=== PATIENT | male | born 1950 | race Caucasian/White ===

== ENCOUNTER 2020-06-30 09:24 | Emergency (ER) | payer MEDICARE, SELFPAY ==
[2020-06-30 09:29] VITALS: BP 180/83; PULSE 84; RESP 18; TEMP 36.8; O2SAT 96
--- NOTE | 2020-06-30 09:37 | W.ED.GENAD ---
Discharge Plan Disposition Patient Disposition: HOME Condition: Stable Discharge Details Clinical Impression: Abdominal cramping Primary Care Provider: None,None ED Provider: Selma Cam Home Meds and New Rx's Prescriptions: No Action No Known Home Meds RF: 0 Discharge Instructions Instructions: Abdominal Pain (ED) Additional Instructions: As discussed, your urine does not show any evidence of infection. However, I am concerned for potential other etiology as the cause of your abdominal cramping. You are decided to leave prior to further evaluation. However, you may return at anytime should you develop new, worsening, persistent symptoms. Please follow-up with your primary care at the beginning of next week. When you follow-up with your primary care, please discuss your elevated blood pressure that was noted today. Discharge Data Discharge Date/Time-TO BE ENTERED AT DEPARTURE: 06/30/20 10:01 Medical Decision Making Patient is a pleasant 70-year-old gentleman presents today with chief complaint of increased frequency and urgency of urination. Is also endorsing some cramping of his bladder. States that symptoms again 2 days ago and is progressively been worsening. He denies any fevers or chills. States he has had some mild nausea but no vomiting. No change in his appetite. States he has not had symptoms like this historically. Denies any hematuria. No penile discharge. Denies any dysuria. No change in bowel habits. States that he has his prostate checked recently and it was without abnormality. Denies any penile lesions. On exam, patient appears nontoxic. His abdominal exam is benign aside for some mild discomfort of the bladder but no peritoneal findings were noted. He has no CVA tenderness. Patient declined genital rectal exam. Urinalysis without significant abnormality. Patient's postvoid residual was 40 cc. I discussed these findings with the patient. I did advise that as he is having some discomfort and change in urinary habits we should evaluate this further he is declining at this time. He feels that likely it is benign we will subside. I did discuss potential other etiologies including but not limited to diverticulitis, appendicitis, prostatitis, cystitis. I did discuss the potential complications of these. Patient is continued denying any further work-up at this time and would prefer discharge home. He is cognitively appropriate and seems able to make these decisions. He was noted to be hypertensive at 180/83. He denies any history of hypertension. States he does have a primary care in [place] and he is able to follow-up with them next week if symptoms persist. However, he was given very strict return precautions and is able to return if he would like to have continued evaluation or he has any new or worsening symptoms. All questions and concerns were addressed. HPI General Mode of arrival: ambulatory. Date/Time Provider Initiated Documentation: 06/30/20 09:36. Limitations to Documentation: no limitations. Information obtained by: patient and RN notes reviewed. History of Present Illness 70 year old M presents to the emergency department with the chief complaint of bladder cramping, described as moderate, with intensity rated at 6. Quality is described as other (cramping), and is localized to the abdomen. Patient reports no radiation. Patient started experiencing this day(s) (2) and it has been intermittent. other things that improve symptom(s), (urinating) Other factors that worsen symptoms (need to urinate) . Patient notes nausea/vomiting (nausea, no vomiting); denies chest pain, cough, diaphoresis, fever/chills, loss of appetite, rash and shortness of breath. Patient did receive the following treatments prior to arrival, none Related Data Home Medications Medication Instructions Recorded Confirmed Unknown [No Known Home Meds] 06/30/20 06/30/20 Allergies Allergy/AdvReac Type Severity Reaction Status Date / Time No Known Allergies Allergy Unverified 06/30/20 09:32 General Stated Complaint: Urinary CRISTIANA: 3 Review of Systems Constitutional Constitutional: Reports as per HPI, Denies chills, Denies fever(s) and Denies poor appetite Cardiovascular Cardiovascular: Denies chest pain Respiratory Respiratory: Denies cough Gastrointestinal Gastrointestinal: Reports abdominal pain (low, over bladder, describes cramping), Denies change in bowel habits, Reports nausea and Denies vomiting Genitourinary Genitourinary: Reports as per HPI, Denies hematuria, Denies oliguria, Denies difficulty urinating, Denies genital lesions, Denies genital pain, Denies dysuria, Denies flank pain, Denies penile discharge, Denies scrotal swelling, Denies testicular pain, Reports urinary frequency, Denies urinary incontinence and Reports urinary urgency Musculoskeletal Musculoskeletal: Reports as per HPI and Denies back pain Integumentary/Breasts Skin/Breast: Reports as per HPI and Denies rash [facility] Social History Smoking/Tobacco Use Status: Never Alcohol Intake: current Alcohol Intake frequency: holidays/special occasions only Do you feel safe at home: Yes Do you feel safe in your relationship?: Yes Exam Const General: cooperative, healthy appearing, comfortable, no acute distress, well developed and well groomed Nutritional Appearance: average body habitus and well nourished Orientation: alert and awake Resp Effort & Inspection: normal respiratory effort and no respiratory distress Auscultation: clear to auscultation bilaterally, no rales, no rhonchi and no wheezes Cardio Rate: regular rate Rhythm: regular rhythm Heart Sounds: S1 normal and S2 normal GI Inspection: normal to inspection Palpation: soft, no hepatosplenomegaly, not firm, no guarding, not rigid and tender (over bladder, no peritoneal findings) Back/Spine/Pelvis Back: no CVA tenderness Skin General skin exam: no rashes or lesions noted Trauma: no lacerations or abrasions Neuro General: patient alert and patient awake Cognition: normal cognition Speech: speech normal Gait: normal gait Psych Appearance: grossly normal and well kempt Mental Status: mental status grossly normal Speech and Movement: speech and movement normal Course Vital Signs Vital signs: Vital Signs Temperature 36.8 C 06/30/20 09:29 Pulse 84 06/30/20 09:29 Respiratory Rate 18 06/30/20 09:29 Blood Pressure 180/83 H 06/30/20 09:29 Pulse Oximetry 96 06/30/20 09:29 Temperature 36.8 C 06/30/20 09:29 Temperature Source Oral 06/30/20 09:29 Pulse 84 06/30/20 09:29 Respiratory Rate 18 06/30/20 09:29 Blood Pressure 180/83 H 06/30/20 09:29 Blood Pressure Position Sitting 06/30/20 09:29 Pulse Oximetry 96 06/30/20 09:29 Oxygen Delivery Method Room Air 06/30/20 09:29 Oxygen Flow Rate 0 06/30/20 09:29 Pain Level 6 06/30/20 09:29
[2020-06-30 09:39] LABS: Bilirubin Negative (Negative); Blood Negative (Negative); Clarity Clear (Clear); Glucose Negative (Negative); Ketones Negative (Negative); Leukocyte Esterase Negative (Negative); Nitrite Negative (Negative); Specific Gravity 1.025 (1.005-1.025); Urobilinogen 0.2 EU/dL (Up TO 0.2)
--- NOTE | 2020-06-30 09:56 | NUR.NOTE ---
patient's UA came back negative for uti. refusing any further exploration of what is causing his sx.
== END 2020-06-30 10:01 | disposition home or self-care (01) ==
PROVIDERS: Emergency Provider Physician Assistant
DX: R10.30 Lower abdominal pain, unspecified (principal); R35.0 Frequency of micturition; R03.0 Elevated blood-pressure reading, without diagnosis of hypertension; R11.0 Nausea
CPT/HCPCS: 99282; 81003; 99284

== ENCOUNTER 2024-05-10 10:46 | Inpatient (IN) | payer MEDICARE, SELFPAY ==
[2024-05-10] VITALS (54 sets, daily range): BP systolic 126–165; BP diastolic 62–96; PULSE 62–120; RESP 16–30; TEMP 37–37.2; O2SAT 93–98
--- NOTE | 2024-05-10 11:00 | DI.CT_ITS ---
Exam(s) CT ABDOMEN PELVIS W EXAM: CT ABDOMEN PELVIS W CLINICAL HISTORY: lower abd pain, h/o diverticulosis. TECHNIQUE: Imaging Protocol: Axial computed tomography images with coronal and sagittal reformatted images were created and reviewed CONTRAST MATERIAL: Intravenous: Omnipaque 350 Contrast volume:90 ml Oral/ no COMPARISON: No exams were available for comparison FINDINGS: ABDOMEN and PELVIS: Exam is limited by lack of intra-abdominal fat and oral contrast. Lung Bases: No acute findings. Liver: Normal density. No suspicious mass. Gallbladder and biliary tract: No radiodense calculus. No biliary dilation. Pancreas: Normal density. No abnormal calcifications or inflammatory process. No evidence of mass. Spleen: Normal. Kidneys: Right kidney mildly atrophic. Normal axis. No radiodense stones. No obstructive uropathy. No suspicious masses seen. Adrenal glands: No masses seen. Vasculature: Abdominal aorta non-dilated. Severe atherosclerotic changes. Soft tissues: Unremarkable. Bladder: Not well evaluated due to artifact from hip prostheses. Bowel: Limited evaluation without IV contrast and lack of intra-abdominal. Evaluation also somewhat limited due to artifact from hip prostheses. Abnormally dilated loops of small bowel with transition point in left lower quadrant. Sigmoid diverticulosis. Moderate quantity of stool. Peritoneal cavity: Small amount of fluid in the pelvis. No definite abscess or free air. Bones: Bilateral hip prostheses. Severe degenerative changes in the lower lumbar spine, L4-5 and L5- S1. Vacuum disc present at these levels. Reproductive organs: Prostate mildly enlarged. Lymph nodes: No pathologically enlarged lymph nodes. IMPRESSION:: Small-bowel obstruction with transition point in the left lower quadrant. Small amount of pelvic ascites. No free air or abscess. Findings called to Blaine Nix, ER provider. RADIATION DOSE DELIVERED: Total DLP DATA REPOSITORY: All CT scans at this facility are submitted to the National Radiology Data Registry (NRDR) Dose Index Registry (DIR) with the [employer] (ACR). RADIATION OPTIMIZATION: All CT scans at this facility use at least one of these dose optimization te chniques: automated exposure control; mA and/or kV adjustment per patient size (includes targeted exa ms where dose is matched to clinical indication); or iterative reconstruction.
--- NOTE | 2024-05-10 11:18 | ED.GENADUL_ITS ---
Discharge Plan Disposition Patient Disposition: Admit to [facility] Discharge Details Clinical Impression: Small bowel obstruction Primary Care Provider: None,None ED Provider: Germania Sampson Home Meds and New Rx's Prescriptions: No Action No Known Home Meds HPI General Date/Time Provider Initiated Documentation: 05/10/24 10:55 . 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 He reports symptoms started 3 days ago, though last 2 days he has been taking Cipro 500 mg twice daily. This has been accompanied by nausea/vomiting and constipation. He denies fever/chills, flank pain, dysuria, blood in stool, testicular/penile pain or swelling. He did have a bowel movement today after 3 days of constipation. He does have a history of diverticulosis noted on colonoscopy. He only takes lisinopril daily for hypertension, no history of other chronic diseases or abdominal surgeries. Physical exam remarkable for softly distended abdomen that is diffusely tender, worse in the lower abdomen. Normoactive bowel sounds. Easy work of breathing, lung sounds clear bilaterally. Normal heart sounds. DDx includes but is not limited to: UTI, diverticulitis, bowel obstruction, neoplasm I independently interpreted the following tests: CBC notable for mild leukocytosis, white cell count 11.47, mild hyponatremia/hypochloremia with sod ium 130 and chloride 93. Elevated creatinine to BUN ratio, 1.2: 24, consistent with mild dehydration. UA notable for trace protein, 40 ketones, trace blood, small bili. CT abdomen/pelvis performed, significant for small bowel obstruction. Discussed findings with patient, plan to admit to inpatient care unit for management. 1530: Discussed case with Dr. Ac, general surgery. Patient to be admitted to surgical service. NG tube ordered per surgery request. Patient to remain n.p.o., IV fluids at 125 an hour. Related Data Home Medications ?Medication ?Instructions ?Recorded ?Confirmed Unknown [No Known Home Meds] 06/30/20 06/30/20 Allergies Allergy/AdvReac Type Severity Reaction Status Date / Time No Known Allergies Allergy Unverified 06/30/20 09:32 General Stated Complaint: Urinary CRISTIANA: 4 Review of Systems Narrative: see HPI Exam Const General: cooperative, healthy appearing, comfortable and no acute distress Nutritional Appearance: thin HENMT Head: normal to inspection Face and sinus: dry mucous membranes Resp Effort & Inspection: normal respiratory effort and able to speak in complete sentences Auscultation: clear to auscultation bilaterally Cardio Rate: regular rate Rhythm: regular rhythm GI Inspection: distended (softly distended) Palpation: soft, no masses and tender (worst in lower abd) Auscultation: normal bowel sounds Course Vital Signs Vital signs: Vital Signs Temperature 37.1 C 05/10/24 10:56 Pulse 120 H 05/10/24 10:56 Respiratory Rate 16 05/10/24 10:56 Blood Pressure 165/96 H 05/10/24 10:56 Pulse Oximetry 96 05/10/24 10:56 Temperature 37.1 C 05/10/24 10:56 Temperature Source Tympanic 05/10/24 10:56 Pulse 120 H 05/10/24 10:56 Respiratory Rate 16 05/10/24 10:56 Blood Pressure 165/96 H 05/10/24 10:56 Blood Pressure Position Sitting 05/10/24 10:56 Pulse Oximetry 96 05/10/24 10:56 Oxygen Delivery Method Room Air 05/10/24 10:56 Oxygen Flow Rate 0 05/10/24 10:56 Pain Level 6 05/10/24 10:56 Medical Decision Making Imaging Data Radiologic Study: Radiologist's impression: Exam(s) CT ABDOMEN PELVIS W EXAM: CT ABDOMEN PELVIS W CLINICAL HISTORY: lower abd pain, h/o diverticulosis. TECHNIQUE: Imaging Protocol: Axial computed tomography images with coronal and sagittal reformatted images were created and reviewed CONTRAST MATERIAL: Intravenous: Omnipaque 350 Contrast volume:90 ml Oral/ no COMPARISON: No exams were available for comparison FINDINGS: ABDOMEN and PELVIS: Exam is limited by lack of intra-abdominal fat and oral contrast. Lung Bases: No acute findings. Liver: Normal density. No suspicious mass. Gallbladder and biliary tract: No radiodense calculus. No biliary dilation. Pancreas: Normal density. No abnormal calcifications or inflammatory process. No evidence of mass. Spleen: Normal. Kidneys: Right kidney mildly atrophic. Normal axis. No radiodense stones. No obstructive uropathy. No suspicious masses seen. Adrenal glands: No masses seen. Vasculature: Abdominal aorta non-dilated. Severe atherosclerotic changes. Soft tissues: Unremarkable. Bladder: Not well evaluated due to artifact from hip prostheses. Bowel: Limited evaluation without IV contrast and lack of intra-abdominal. Evaluation also somewhat limited due to artifact from hip prostheses. Abnormally dilated loops of small bowel with transition point in left lower quadrant. Sigmoid diverticulosis. Moderate quantity of stool. Peritoneal cavity: Small amount of fluid in the pelvis. No definite abscess or free air. Bones: Bilateral hip prostheses. Severe degenerative changes in the lower lumbar spine, L4-5 and L5-S1. Vacuum disc present at these levels. Reproductive organs: Prostate mildly enlarged. Lymph nodes: No pathologically enlarged lymph nodes. IMPRESSION:: Small-bowel obstruction with transition point in the left lower quadrant. Small amount of pelvic ascites. No free air or abscess. Findings called to Blaine Nix, ER provider. Quality:SDOH Health Related Social Needs: No Data to Display PFSH All Active Problems (Updated 05/10/24 @ 15:31 by Germania Nix) Small bowel obstruction (Acute) Social History Smoking/Tobacco Use Status: Never Smoking risk assessment performed?: Yes Alcohol Intake: current Alcohol Intake frequency: holidays/special occasions only Drug use: Never Substance use type: does not use Housing: house Do you feel safe at home: Yes Do you feel safe in your relationship?: Yes
[2024-05-10] MEDS: Normal Saline 1,000 ML 1000 ML IV (11:52)
[2024-05-10 11:53] LABS: Abs Immature Grans 0.03 10^3/uL (0.0-0.06); Absolute Eosinophil Count 0.01 10^3/uL (0.0-0.7); Absolute Lymphocyte Count 0.39 10^3/uL (1.2-3.4); Absolute Monocyte Count 0.95 10^3/uL (0.1-0.8); Absolute Neutrophil Count 10.05 10^3/uL (1.2-6.7); Basophils % 0.3 %; Eosinophils % 0.1 %; HCT 45.7 % (40.0-50.0); HGB 15.4 g/dL (13.5-17.5); Immature Grans % 0.3 %; Lymphocytes % 3.4 %; MCHC 33.7 % (32.0-36.0); MCV 95 fL (80-95); MPV 8.8 fL (8.0-11.0); Monocytes % 8.3 %; Neutrophils % 87.6 %; Platelet Count 272 10^3/uL (130-400); RBC 4.82 10^6/uL (4.36-5.78); RDW-SD 45.5 fL; WBC 11.47 10^3/uL (4.4-10.8)
[2024-05-10 11:54] LABS: Absolute Basophil Count 0.03 10^3/uL (0.0-0.2)
[2024-05-10 12:14] LABS: ALT 14 U/L (16-63); AST 12 U/L (15-37); Albumin 2.8 g/dL (3.4-5.0); Alkaline Phosphatase 64 U/L (46-116); Anion Gap 5.6 mmol/L (3-11); BUN 24 mg/dL (7-18); Bilirubin, Total 0.83 mg/dL (0.2-1.0); CO2 31.4 mmol/L (21.0-32.0); CREATININE 1.2 mg/dL (0.70-1.30); Calcium 9.3 mg/dL (8.5-10.1); Chloride 93 mmol/L (98-107); Estimated GFR 64.25 (mL/min/1.73m2); Glucose 131 mg/dL (74-106); Potassium 4.8 mmol/L (3.5-5.1); Sodium 130 mmol/L (136-145); Total Protein 7.1 g/dL (6.4-8.2)
[2024-05-10] MEDS: Ketorolac 15 MG/ML VIAL IVP (12:26)
[2024-05-10] MEDS: Omnipaque 350 MG/ML 100 ML BTL IJ (13:18)
[2024-05-10] MEDS: Normal Saline - Diluent 50 ML VIAL IJ (13:19)
[2024-05-10 14:52] LABS: Bilirubin Small (Negative); Blood Trace-intact (Negative); Clarity Clear (Clear); Glucose Negative (Negative); Ketones 40 mg/dL (Negative); Leukocyte Esterase Negative (Negative); Nitrite Negative (Negative); pH 5.5 (5-8)
[2024-05-10 14:56] LABS: Bacteria Negative HPF (Negative); C & S Indicated? No; Casts 3-5 Hyaline LPF (Negative); Crystals Negative HPF (Negative); Epithelial Cells Few HPF (Negative); Mucus Trace (Negative); RBC 0-2 HPF (0-2); WBC Negative HPF (0-5)
[2024-05-10] MEDS: Lactated Ringers 1,000 ML 125 ML IV (15:35)
--- NOTE | 2024-05-10 15:43 | HPE_ITS ---
Date of service: 05/10/24 Time of Service: 15:43 Assessment and Plan Assessment and plan (1) Small bowel obstruction: Status: Acute Assessment and plan: NG tube decompression Pain control Gastrografin challenge Encourage ambulation Once the small bowel obstruction has resolved, patient will need some type of further evaluation to delineate cause of weight loss and to ensure that there is no colonic obstructions from either diverticular stricture or colon cancer. (2) S/P bilateral hip replacements: (3) Diverticula of colon: Status: Acute Assessment and plan: Patient denies history of multiple episodes of diverticulitis (4) Atherosclerosis of aorta: Status: Acute (5) DJD (degenerative joint disease), lumbar: Status: Acute (6) HTN (hypertension): Status: Chronic Assessment and plan: lisinapril (7) Former smoker: Status: Acute (8) COPD (chronic obstructive pulmonary disease): Status: Chronic (9) BPH (benign prostatic hyperplasia): Status: Chronic (10) Weight loss, unintentional: Status: Acute History of Present Illness Narrative: Patient is a 74-year-old white male who was in his normal state of good health until Friday. He started having crampy abdominal pain that progressed throughout the weekend. Friday started having nausea vomiting and severe pain and came into the ER. Patient's never had a bowel obstruction in the past. He has never had anything like this before. He denies any trauma. He denies any travel. He denies any unusual foods. He denies any medication or supplements. He has never had any abdominal surgery before. He does have a pretty extensive history of diverticular disease. He had a colonoscopy and banding 10 to 15 years ago. At least had difficulty passing the scope. He has not had a colonoscopy since that time for fear of perforation. Patient does note that he has lost weight. He denies any changes in his bowel habits. He has not had any problems with constipation or diarrhea. He has not noticed any blood in his stools. He denies any heartburn or indigestion. He notes decreased appetite and will occasionally just have generalized abdominal pain and this is why he has not been eating. I did personally review CT scans and labs. He denies any chest pain with strenuous activities. He might get short of breath with strenuous activities. He is a former smoker. He has never been told he has emphysema. He denies heart attack/stroke/diabetes/COPD/asthma He does have a history of hypertension and takes lisinopril. Past surgery significant for bilateral hip replacement, colonoscopy, back surgery. He denies any problems with anesthesia. Review of Systems All systems reviewed & are unremarkable except as noted in HPI and below PFSH All Active Problems (Updated 05/10/24 @ 21:53 by Liza Ac DO) Weight loss, unintentional (Acute) BPH (benign prostatic hyperplasia) (Chronic) COPD (chronic obstructive pulmonary disease) (Chronic) Former smoker (Acute) HTN (hypertension) (Chronic) DJD (degenerative joint disease), lumbar (Acute) Atherosclerosis of aorta (Acute) Diverticula of colon (Acute) Small bowel obstruction (Acute) Surgical History (Updated 05/10/24 @ 15:44 by Liza Ac DO) S/P bilateral hip replacements Social History Smoking/Tobacco Use Status: Never Smoking risk assessment performed?: Yes Alcohol Intake: current Alcohol Intake frequency: holidays/special occasions only Drug use: Never Substance use type: does not use Housing: house Do you feel safe at home: Yes Do you feel safe in your relationship?: Yes Meds Allergies and Home Medications Allergies Allergy/AdvReac Type Severity Reaction Status Date / Time No Known Allergies Allergy Unverified 06/30/20 09:32 Home Medications ?Medication ?Instructions ?Recorded ?Confirmed ?Type Unknown [No Known Home Meds] 06/30/20 06/30/20 History Exam Const Other: PHYSICAL EXAM GENERAL APPEARANCE: Alert, healthy appearance, oriented, x 3,? in no acute distress HYDRATION: Well hydrated HEAD, EYES, EARS, NECK, THROAT: Head is normocephalic, pupils equal, round, reactive to light and accommodation, ocular movement intact, sclera clear and no jaundice. ?Dentition intact. LUNGS: normal respiration/normal chest excursion. Diffuse wheezing throughout all infante ?HEART: Regular rate and rhythm. no murmurs EXTREMITY: No edema or cyanosis.? no leg pain, redness, swelling.? Muscle wasting noted ABDOMEN: Distended and no bowel sounds. Tender but no peritonitis. no hernias. No surgical scars. Results Labs 05/10/24 11:45 05/11/24 05:51 Labs: Laboratory Results - last 24 hr 05/10/24 05/10/24 11:45 14:38 WBC 11.47 H RBC 4.82 Hgb 15.4 Hct 45.7 MCV 95 MCH 32.0 MCHC 33.7 RDW 13.0 Plt Count 272 MPV 8.8 Immature Gran % 0.3 Neutrophils % 87.6 Lymphocytes % 3.4 Monocytes % 8.3 Eosinophils % 0.1 Basophils % 0.3 Nucleated RBC % 0.0 Absolute Neutrophils 10.05 H Absolute Lymphocytes 0.39 L Absolute Monocytes 0.95 H Absolute Eosinophils 0.01 Absolute Basophils 0.03 Sodium 130 L Potassium 4.8 Chloride 93 L Carbon Dioxide 31.4 Anion Gap 5.6 BUN 24 H Creatinine 1.2 Est GFR (CKD-EPI 2020) 64.25 Glucose 131 H Calcium 9.3 Total Bilirubin 0.83 AST 12 L ALT 14 L Alkaline Phosphatase 64 Total Protein 7.1 Albumin 2.8 L Urine Color Yellow Urine Clarity Clear Urine pH 5.5 Ur Specific [place] 1.020 Urine Protein 100 H Urine Ketones 40 H Urine Blood Trace-intact H Urine Nitrite Negative Urine Bilirubin Small H Urine Urobilinogen 1.0 H Ur Leukocyte Esterase Negative Urine RBC 0-2 Urine WBC Negative Ur Epithelial Cells Few Urine Crystals Negative Urine Bacteria Negative Urine Casts 3-5 Hyaline Urine Mucus Trace Ur Culture Indicated? No Urine Glucose Negative Last Vital Signs Temp 37.1 C 05/10/24 10:56 Pulse 120 H 05/10/24 10:56 Resp 16 05/10/24 10:56 BP 165/96 H 05/10/24 10:56 Pulse Ox 96 05/10/24 10:56 Time Spent Time spent with Patient: 55-74 minutes Time was spent: preparing to see the patient(eg.review tests), obtaining and/or reviewing separately otained hiistory, ordering medications,tests, procedures, referring, communicating with other health aged or disabled carer, indepentently interpreting results, counseling the patient, care coordination and other
--- NOTE | 2024-05-10 16:59 | W.PC.ACHO ---
Registration Status: Primary Language: Preferred Language: ED Information & Data Chief Complaint Urinary 05/10/24 12:21 Chief Complaint Urinary 05/10/24 11:21 Triage Note On Friday started with low 05/10/24 10:56 abd discomfort and dark colored urine; endorses pain and burning with urination that started on Friday. Has started self medicating with cipro twice daily since Friday (Last Updated 05/10/24 @ 15:44 by Liza Ac DO) S/P bilateral hip replacements Most Recent Vital Signs Temperature 37 C 05/10/24 16:18 Temperature Source Tympanic 05/10/24 16:18 Pulse 70 05/10/24 16:18 Respiratory Rate 18 05/10/24 16:18 Respiratory Effort Normal 05/10/24 12:21 Blood Pressure 134/72 05/10/24 16:18 Blood Pressure Position Sitting 05/10/24 16:18 Pulse Oximetry 98 05/10/24 16:18 Oxygen Delivery Method Room Air 05/10/24 16:18 Oxygen Flow Rate 0 05/10/24 16:18 Pain Level 6 05/10/24 16:18 Allergies No Known Allergies Allergy (Unverified 06/30/20 09:32) Precautions Isolation Standard precaution 05/10/24 12:21 Active Medications Generic Name Dose Route Start Last Admin Trade Name Ed PRN Reason Stop Dose Admin Ringer's Solution 1,000 mls @ 125 mls/hr 05/10/24 15:30 05/10/24 15:35 IV 125 mls/hr INFUSION FLORY Administration Iohexol 100 ml 05/10/24 13:30 05/10/24 13:18 Omnipaque 350 Mg/Ml 100 Ml Btl IJ 06/09/24 23:59 90 ml DIRECTED FLORY Administration Sodium Chloride 50 ml 05/10/24 13:30 05/10/24 13:19 Normal Saline - Diluent 50 Ml Vial IJ 50 ml .FOR DI USE FLORY Administration IV IV Catheter Type [Left Saline Lock Antecubital] IV Catheter Gauge [Left 18 Antecubital] Diagnostics 05/10/24 05/10/24 Range/Units 14:38 11:45 WBC 11.47 H (4.4-10.8) 10^3/uL RBC 4.82 (4.36-5.78) 10^6/uL Hgb 15.4 (13.5-17.5) g/dL Hct 45.7 (40.0-50.0) % MCV 95 (80-95) fL MCH 32.0 (27.0-33.0) pg MCHC 33.7 (32.0-36.0) % RDW 13.0 (11.8-14.1) % Plt Count 272 (130-400) 10^3/uL MPV 8.8 (8.0-11.0) fL Immature Gran % 0.3 % Neutrophils % 87.6 % Lymphocytes % 3.4 % Monocytes % 8.3 % Eosinophils % 0.1 % Basophils % 0.3 % Nucleated RBC % 0.0 (0.0-0.3) % Absolute Neutrophils 10.05 H (1.2-6.7) 10^3/uL Absolute Lymphocytes 0.39 L (1.2-3.4) 10^3/uL Absolute Monocytes 0.95 H (0.1-0.8) 10^3/uL Absolute Eosinophils 0.01 (0.0-0.7) 10^3/uL Absolute Basophils 0.03 (0.0-0.2) 10^3/uL Sodium 130 L (136-145) mmol/L Potassium 4.8 (3.5-5.1) mmol/L Chloride 93 L (98-107) mmol/L Carbon Dioxide 31.4 (21.0-32.0) mmol/L Anion Gap 5.6 (3-11) mmol/L BUN 24 H (7-18) mg/dL Creatinine 1.2 (0.70-1.30) mg/dL Est GFR (CKD-EPI 2020) 64.25 (mL/min/1.73m2) Glucose 131 H (74-106) mg/dL Calcium 9.3 (8.5-10.1) mg/dL Total Bilirubin 0.83 (0.2-1.0) mg/dL AST 12 L (15-37) U/L ALT 14 L (16-63) U/L Alkaline Phosphatase 64 (46-116) U/L Total Protein 7.1 (6.4-8.2) g/dL Albumin 2.8 L (3.4-5.0) g/dL Urine Color Yellow (Yellow) Urine Clarity Clear (Clear) Urine pH 5.5 (5-8) Ur Specific [place] 1.020 (1.005-1.025) Urine Protein 100 H (Neg-Trace) mg/dL Urine Ketones 40 H (Negative) mg/dL Urine Blood Trace-intact H (Negative) Urine Nitrite Negative (Negative) Urine Bilirubin Small H (Negative) Urine Urobilinogen 1.0 H (Up to 0.2) mg/dL Ur Leukocyte Esterase Negative (Negative) Urine RBC 0-2 (0-2) HPF Urine WBC Negative (0-5) HPF Ur Epithelial Cells Few (Negative) HPF Urine Crystals Negative (Negative) HPF Urine Bacteria Negative (Negative) HPF Urine Casts 3-5 Hyaline (Negative) LPF Urine Mucus Trace (Negative) Ur Culture Indicated? No Urine Glucose Negative (Negative) mg/dL Intake and Output - 24 Hour Total 05/10/24 10:46 thru 05/10/24 13:08 Intake Total 1000 Balance 1000 Weight 62.142 kg Intake: IV 1000 Falls Risk Assessment History of Falls No History 05/10/24 12:21 Contributing Factors No Factors 05/10/24 12:21 Ambulatory Aids Independent 05/10/24 12:21 Tubes/Lines None 05/10/24 12:21 Gait Evaluation No gait disturbance 05/10/24 12:21 Cognition No cognitive impairment 05/10/24 12:21 Fall Total Score 0 05/10/24 12:21 Level of Risk Standard/Low Risk 05/10/24 12:21 Problems (Last Reviewed 06/30/20 @ 11:23 by MEHRDAD Ruffin) DJD (degenerative joint disease), lumbar (Acute) Atherosclerosis of aorta (Acute) Diverticula of colon (Acute) Small bowel obstruction (Acute) v v v v v v v v v Sending and/or Receiving Nurses: Please use comment section below to note any information pertinent to the patient hand-off not included above. Information / Comments: A/O x4, c/o 7/10 ABD pain, multiple episodes of emesis, pain radiating to back, HR in 120s, otherwise VS WNL, LS clear on RA, had BM today 05/10 prior to admission, pt states it was normal Report received from: JAIR Dodd
[2024-05-10] MEDS: FAMOTIDINE 20 MG/50 ML BAG 200 MG IV (17:08)
[2024-05-10] MEDS: Normal Saline Flush 10 ML SYR IVP ×2 (18:12→20:11)
[2024-05-10] MEDS: MORPHine 2 MG/ML SYR IVP ×2 (18:12→20:28)
--- NOTE | 2024-05-10 19:14 | DI.RAD_ITS ---
Exam(s) XR PORTABLE CHEST AP POST LINE EXAM: XR PORTABLE CHEST AP POST LINE CLINICAL HISTORY: NGT placement confirmation TECHNIQUE: 2D digital imaging was performed. COMPARISON: No exams were available for comparison FINDINGS: A nasogastric tube has been placed. The tip of the tube is in the fundus of the stomach. The side hole is at the lower esophagus. The tube should be advanced. LUNGS: Clear. No pleural abnormality seen. HEART: Normal size. AORTA: Normal diameter. BONES: Unremarkable for age. Soft tissues: Dilated loops of small bowel noted in the upper abdomen. IMPRESSION: Dilated small bowel loops. Status post placement of nasogastric tube which should be advanced furthe r into the stomach. DATA REPOSITORY: RADIATION DOSE DELIVERED:
--- NOTE | 2024-05-10 19:23 | DI.VRAD_ITS ---
PROCEDURE INFORMATION: Exam: XR Chest Exam date and time: 05/10/2024 7:11 PM Age: 74 years old Clinical indication: Device placement; Ngt placement confirmation TECHNIQUE: Imaging protocol: Radiologic exam of the chest. Views: 1 view. COMPARISON: CT ABDOMEN PELVIS W 05/10/2024 1:10 PM FINDINGS: Limitations: Of note the superior aspect of the chest is submitted from this examination. Tubes, catheters and devices: An enteric tube is noted in place. The side hole is noted at the GE junction, therefore the tube may be advanced approximately 10 cm for proper positioning. A safety pin is noted at the superior left aspect of the image, likely external to the patient. Lungs: No consolidation. Pleural spaces: No pleural effusion. No pneumothorax. Heart/Mediastinum: No cardiomegaly. Bones/joints: Unremarkable. Gastrointestinal tract: Dilated loops of bowel partially visualized. IMPRESSION: 1. Enteric tube may be advanced approximately 10 cm for proper positioning. 2. No significant pulmonary parenchymal abnormality. Dictated and Authenticated by: Deepti Rivas MD. Ordering:LUIS De Jesus MD
[2024-05-10] MEDS: Heparin 5,000 UNITS/ML VIAL 5000 UNITS SC (20:10)
[2024-05-10] MEDS: Gastrografin 120 ML BTL PO (20:29)
[2024-05-11] VITALS (7 sets, daily range): BP systolic 150–151; BP diastolic 92–98; PULSE 79–93; RESP 18–159; TEMP 36.4–37.4; O2SAT 94–97
--- NOTE | 2024-05-11 | DI.RAD_ITS ---
Exam(s) XR ABDOMEN FLAT PLATE EXAM: 2D digital imaging was performed. CLINICAL HISTORY: 8 hrs following gastrografin. COMPARISON: CR XR ABDOMEN FLAT PLATE from 05/11/2024 TECHNIQUE: Supine views of the abdomen was performed. Three images were obtained. FINDINGS: BOWEL GAS PATTERN: There are again seen distended loops of small bowel consistent with the patient's small-bowel obstruction. The oral Gastrografin has shown little progression since the prior examinat ion at 1306 hours. The tip of the enteric tube is again seen in the stomach. FREE AIR: None. CALCIFICATIONS: No radiopaque calcifications. OSSEOUS STRUCTURES: The patient has bilateral total hip replacements. There is a mild left convex cu rvature of the lumbar spine. OTHER FINDINGS: There is contrast seen in the urinary bladder consistent with the patient's recent CT examination. IMPRESSION: No significant progression of the oral Gastrografin since the prior examination. DATA REPOSITORY: RADIATION DOSE DELIVERED:
[2024-05-11] MEDS: Lactated Ringers 1,000 ML 125 ML IV (01:43)
[2024-05-11] MEDS: Heparin 5,000 UNITS/ML VIAL 5000 UNITS SC ×2 (05:59→17:37)
[2024-05-11] MEDS: FAMOTIDINE 20 MG/50 ML BAG 196.078 MG IV (05:59)
[2024-05-11] MEDS: ACETAMINOPHEN 1,000 MG/100 ML BTL 400 MG IVPB (06:41)
[2024-05-11 06:52] LABS: Anion Gap 7.5 mmol/L (3-11); BUN 24 mg/dL (7-18); CO2 30.5 mmol/L (21.0-32.0); Chloride 97 mmol/L (98-107); Estimated GFR 79.97 (mL/min/1.73m2); Glucose 105 mg/dL (74-106); Magnesium 1.8 mg/dL (1.8-2.4); Potassium 4.7 mmol/L (3.5-5.1); Sodium 135 mmol/L (136-145)
--- NOTE | 2024-05-11 08:00 | DI.RAD_ITS ---
Exam(s) XR ABDOMEN FLAT UPRIGHT EXAM: 2D digital imaging was performed. CLINICAL HISTORY: SBO. COMPARISON: CT CT ABDOMEN PELVIS W from 05/10/2024 TECHNIQUE: Supine and uprightSupine and Lateral views of the abdomen were performed. FINDINGS: BOWEL GAS PATTERN: Distended loops small bowel with air-fluid levels are again noted. Not definitely changed from prior CT. No free air. Nasogastric tube has been advanced and projects in the stomach . Residual contrast in the urinary bladder. CALCIFICATIONS: No urinary tract calcifications. OSSEOUS STRUCTURES: Degenerative changes in the spine. Bilateral hip prostheses. Visualized portions of chest: Unremarkable. IMPRESSION: 1. Findings consistent with small-bowel obstruction. 2. Satisfactory positioning of nasogastric tube. 3. No free air. DATA REPOSITORY: RADIATION DOSE DELIVERED:
[2024-05-11] MEDS: Normal Saline Flush 10 ML SYR IVP ×3 (08:02→19:34)
[2024-05-11] MEDS: Tiotropium Bromide-Respimat 10 PUFF INH 2 PUFF IH (09:25)
--- NOTE | 2024-05-11 10:27 | PDOC.CMIN ---
Date of service: 05/11/24 Time of Service: 10:27 Care Management Initial Assmt Initial Assessment Reason for Hospitalization: SBO Functional Status/Living Situation Patient Presentation: Sitting up in bed, talking with RN. Town of Residence: [place] Resides with: Spouse (Wendy) Significant Other/Family: Local Employment Status: Retired Instrumental Activities of Daily Living (ADLs): Independent Medications Medication Management: No Issues/Barriers identified Advance Directives Advance Directives: Do you have an Advance Directive: Y 06/30/20 09:44 AD On File at [facility]: N 03/06/16 09:17 Date Asked 05/10/24 05/10/24 11:04 AD Date Reviewed COLST On File at [facility] COLST Date Scanned Code Status Resuscitation Status DNR/DNI Care Team Visit Care Team Role Provider Type None None Primary Care Provider MD NON-[facility] STAFF PHYSICIAN Germania Nix Emergency Provider NURSE PRACTITIONER Liza Ac DO Admit Provider OSTEOPATHIC DOCTOR Attending Provider Discharge Potential Discharge Needs: PCP F/U Appt (Offer attachment) Anticipated Barriers to Discharge: None Identified Patient/Family Education Needs: Review discharge instructions, discuss Ask Me Three Transportation: Private vehicle Plan: Per MD: Ha continues to be closely monitored, NG tube placed, pain being monitored and managed and Ha is being encouraged to ambulate. Per MD, anticipate further work-up once SBO is resolved to determine cause of weight loss. Anticipate Ha will return home with no additional services, PCP F/U to be offered, he will transport home via private vehicle. PFSH All Active Problems (Updated 05/10/24 @ 21:53 by Liza Ac DO) Weight loss, unintentional (Acute) BPH (benign prostatic hyperplasia) (Chronic) COPD (chronic obstructive pulmonary disease) (Chronic) Former smoker (Acute) HTN (hypertension) (Chronic) DJD (degenerative joint disease), lumbar (Acute) Atherosclerosis of aorta (Acute) Diverticula of colon (Acute) Small bowel obstruction (Acute) Surgical History (Updated 05/10/24 @ 15:44 by Liza Ac DO) S/P bilateral hip replacements Social History Smoking/Tobacco Use Status: Never Smoking risk assessment performed?: Yes Alcohol Intake: current Alcohol Intake frequency: holidays/special occasions only Drug use: Never Substance use type: does not use Housing: house Do you feel safe at home: Yes Do you feel safe in your relationship?: Yes SDOH(Care Management) Screening Will the Patient Participate in the Screening?: Yes Do you worry about having a steady place to live?: no In the past 12 months, have you had to go without electric, gas, oil or water in your home?: no Have you or anyone in your house had to go without enough food to eat?: no Has lack of transportation kept you from medical appointments or from doing things needed for daily living?: no Has anyone in your support network made you feel unsafe for any reason?: no
[2024-05-11] MEDS: Gastrografin 120 ML BTL PO (10:47)
--- NOTE | 2024-05-11 12:01 | W.PM.PROGNOT ---
Date of Service Date of service: 05/11/24 Time of Service: 12:02 Assessment and Plan Assessment and plan (1) Small bowel obstruction: Status: Acute Assessment and plan: NG tube decompression Pain control Gastrografin challenge; Re-ordered due to not being noted on the abd xray today. Will clamp NG tube for 90 mins to ensure it is not being suctioned out. Will repeat abdominal xray Encouraged ambulation Pulmonary toilet was strongly encouraged and sitting in the chiar OOB. (2) S/P bilateral hip replacements: (3) Diverticula of colon: Status: Acute Assessment and plan: Patient denies history of multiple episodes of diverticulitis (4) Atherosclerosis of aorta: Status: Acute (5) DJD (degenerative joint disease), lumbar: Status: Acute (6) HTN (hypertension): Status: Chronic (7) Former smoker: Status: Acute (8) COPD (chronic obstructive pulmonary disease): Status: Chronic (9) BPH (benign prostatic hyperplasia): Status: Chronic (10) Weight loss, unintentional: Status: Acute Subjective Subjective Interval history since last seen: Patient is resting in bed. He states that he continues to feel some abdominal discomfort. Exam Const General: cooperative and ill appearing Orientation: alert and oriented x3 Resp Effort & Inspection: normal respiratory effort, no audible wheezes and cough GI Inspection: distended Palpation: soft, no guarding and tender Percussion: tympanic to percussion Objective Last Vital Signs Temp 37.4 C 05/11/24 07:34 Pulse 93 H 05/11/24 07:34 Resp 20 05/11/24 07:34 BP 151/92 H 05/11/24 07:34 Pulse Ox 97 05/11/24 07:34 Laboratory Results - last 24 hr 05/10/24 05/10/24 05/11/24 11:45 14:38 05:51 Sodium 130 L 135 L Potassium 4.8 4.7 Chloride 93 L 97 L Carbon Dioxide 31.4 30.5 Anion Gap 5.6 7.5 BUN 24 H 24 H Creatinine 1.2 1.0 Est GFR (CKD-EPI 2020) 64.25 79.97 Glucose 131 H 105 Calcium 9.3 9.0 Magnesium 1.8 Total Bilirubin 0.83 AST 12 L ALT 14 L Alkaline Phosphatase 64 Total Protein 7.1 Albumin 2.8 L Urine Color Yellow Urine Clarity Clear Urine pH 5.5 Ur Specific [place] 1.020 Urine Protein 100 H Urine Ketones 40 H Urine Blood Trace-intact H Urine Nitrite Negative Urine Bilirubin Small H Urine Urobilinogen 1.0 H Ur Leukocyte Esterase Negative Urine RBC 0-2 Urine WBC Negative Ur Epithelial Cells Few Urine Crystals Negative Urine Bacteria Negative Urine Casts 3-5 Hyaline Urine Mucus Trace Ur Culture Indicated? No Urine Glucose Negative Time Spent with Patient Time Spent with Patient: <25 minutes Time was spent: preparing to see the patient(eg.review tests), obtaining and/or reviewing separately otained hiistory and counseling the patient
[2024-05-11 12:51] LABS: Lab Add On Test DONE
[2024-05-11 13:15] LABS: NT-proBNP 850 pg/mL (<300)
--- NOTE | 2024-05-11 13:16 | DI.RAD_ITS ---
Exam(s) XR ABDOMEN FLAT PLATE EXAM: 2D digital imaging was performed. CLINICAL HISTORY: Gastrografin Challenge. COMPARISON: CR XR ABDOMEN FLAT UPRIGHT from 05/11/2024 TECHNIQUE: Supine views of the abdomen performed. FINDINGS: Gastrografin administered at 10:30 a.m.. Supine abdomen film performed 1 p.m.. BOWEL GAS PATTERN: Gastrografin is noted in the stomach and proximal jejunum. The bowel loops remain dilated, not changed from the prior exam. Nasogastric tube is unchanged in position in the stomach. OSSEOUS STRUCTURES: Degenerative changes in the spine. Bilateral hip prostheses. OTHER FINDINGS: Residual IV contrast present in the urinary bladder. IMPRESSION: Stable small bowel dilatation. The administered Gastrografin is seen in proximal jejunum and stomach . DATA REPOSITORY: RADIATION DOSE DELIVERED:
[2024-05-11] MEDS: MORPHine 2 MG/ML SYR IVP ×3 (13:54→19:34)
[2024-05-11] MEDS: Lactated Ringers 1,000 ML 75 ML IV (13:56)
[2024-05-11] MEDS: Metoprolol 5 MG/5 ML VIAL IVP ×2 (14:54→20:28)
[2024-05-11] MEDS: FAMOTIDINE 20 MG/50 ML BAG 196 MG IV (17:37)
[2024-05-12] VITALS (16 sets, daily range): BP systolic 129–166; BP diastolic 81–100; PULSE 75–100; RESP 16–20; TEMP 36.2–36.9; O2SAT 92–100; BMI 19.1
[2024-05-12] MEDS: Metoprolol 5 MG/5 ML VIAL IVP ×3 (02:34→21:02)
[2024-05-12] MEDS: MORPHine 2 MG/ML SYR IVP ×3 (02:47→11:20)
[2024-05-12] MEDS: Normal Saline Flush 10 ML SYR IVP ×4 (02:48→21:05)
[2024-05-12] MEDS: Lactated Ringers 1,000 ML 75 ML IV ×2 (05:18→17:27)
[2024-05-12] MEDS: FAMOTIDINE 20 MG/50 ML BAG 196 MG IV ×2 (05:18→21:38)
[2024-05-12] MEDS: Heparin 5,000 UNITS/ML VIAL 5000 UNITS SC ×2 (05:18→21:04)
[2024-05-12 07:17] LABS: HCT 41.2 % (40.0-50.0); MCH 32.3 pg (27.0-33.0); MCV 95 fL (80-95); MPV 9.2 fL (8.0-11.0); Platelet Count 306 10^3/uL (130-400); RBC 4.34 10^6/uL (4.36-5.78); RDW 13.2 % (11.8-14.1); RDW-SD 46.2 fL; WBC 10.44 10^3/uL (4.4-10.8)
[2024-05-12 07:23] LABS: BUN 26 mg/dL (7-18); Calcium 9.4 mg/dL (8.5-10.1); Chloride 101 mmol/L (98-107); Estimated GFR 79.97 (mL/min/1.73m2); Glucose 93 mg/dL (74-106); Potassium 4.1 mmol/L (3.5-5.1); Sodium 138 mmol/L (136-145)
--- NOTE | 2024-05-12 08:00 | DI.RAD_ITS ---
Exam(s) XR ABDOMEN FLAT PLATE EXAM: 2D digital imaging was performed. CLINICAL HISTORY: gastrographin challenge. COMPARISON: No exams were available for comparison TECHNIQUE: Supine views of the abdomen performed. FINDINGS: BOWEL GAS PATTERN: Is a gastric tube unchanged in position in fundus of stomach. No significant ellis ge in degree of small bowel dilatation. The oral contrast has progressed on to the on right lower qu adrant. The lung bases remain clear. IMPRESSION: Administered Gastrografin has progressed into the right lower quadrant. No significant change in bow el distension. DATA REPOSITORY: RADIATION DOSE DELIVERED:
[2024-05-12] MEDS: Tiotropium Bromide-Respimat 10 PUFF INH 2 PUFF IH (08:11)
--- NOTE | 2024-05-12 12:11 | ANES.PREOP_ITS ---
General Info Date of Service Date Performed: 05/12/24 Height: 5 ft 11 in Weight: 62.142 kg Body Mass Index (BMI): 19.1 Meds Allergies and Home Medications Allergies Allergy/AdvReac Type Severity Reaction Status Date / Time No Known Allergies Allergy Unverified 06/30/20 09:32 Home Medication ?Medication ?Instructions ?Recorded lisinopril 5 mg tablet 5 mg PO DAILY 05/11/24 Current Visit Medications: Current Medications Generic Name Dose Route Start Last Admin Trade Name Freq PRN Reason Stop Dose Admin Albuterol Sulfate 2.5 mg 05/10/24 21:55 Albuterol 2.5 Mg/3 Ml Inh Soln Vial UPD Q4H PRN PRN Benzocaine 60 ml 05/10/24 18:00 Benzocaine 20% 60 Ml Can TP DIRECTED FLORY Benzocaine/Menthol 1 each 05/10/24 20:09 Benzocaine/Menthol-Sf Lozg 16/Box SUC Q30MIN PRN sore throat Heparin Sodium (Porcine) 5,000 units 05/10/24 18:00 05/12/24 05:18 Heparin 5,000 Units/Ml Vial SC 5,000 units Q12H FLORY Administration Ringer's Solution 1,000 mls @ 75 mls/hr 05/10/24 15:30 05/12/24 05:18 IV 75 mls/hr INFUSION FLORY Administration Famotidine 20 mg in 50 mls @ 196.078 mls/hr 05/11/24 06:00 05/12/24 05:18 Pepcid Premixed Bag IV 196 mls/hr Q12H FLORY Administration Acetaminophen 1,000 mg in 100 mls @ 400 mls/hr 05/10/24 15:40 05/11/24 13:42 Ofirmev IVPB Infused Q8H PRN PRN Infusion IV Miscellaneous Supplies 1 each 05/10/24 15:45 Iv Access IV DIRECTED [facility] Metoprolol Tartrate 5 mg 05/11/24 14:00 05/12/24 08:00 Metoprolol 5 Mg/5 Ml Vial IVP 5 mg Q6H FLORY Administration Morphine Sulfate 2 mg 05/10/24 15:35 05/12/24 11:20 Morphine 2 Mg/Ml Syr IVP 2 mg Q1H PRN PRN Administration Ondansetron HCl 4 mg 05/10/24 15:35 Ondansetron 4 Mg/2 Ml Vial IVP Q4H PRN PRN Sodium Chloride 0 ml 05/10/24 15:35 05/12/24 02:48 Normal Saline Flush 10 Ml Syr IVP 10 ml PRN PRN Administration Sodium Chloride 0 ml 05/10/24 20:00 05/12/24 08:01 Normal Saline Flush 10 Ml Syr IVP 10 ml BID FLORY Administration Sodium Chloride 0 ml 05/10/24 15:35 Normal Saline 10 Ml Vial IJ DIRECTED PRN Tiotropium Harmon 2 puff 05/11/24 08:30 05/12/24 08:11 Tiotropium Harmon-Respimat 10 Puff Inh IH 2 puff DAILY FLORY Administration PFSH Active Problems Active Problems: Problem Status Onset Code Weight loss, unintentional Acute R63.4 BPH (benign prostatic hyperplasia) Chronic N40.0 COPD (chronic obstructive pulmonary disease) Chronic J44.9 Former smoker Acute Z87.891 HTN (hypertension) Chronic I10 DJD (degenerative joint disease), lumbar Acute M47.816 Atherosclerosis of aorta Acute I70.0 Diverticula of colon Acute K57.30 Small bowel obstruction Acute K56.609 Surgical History Surgical History (Updated 05/10/24 @ 15:44 by Liza Ac DO) S/P bilateral hip replacements Tobacco Smoking/Tobacco Use Status: Never Alcohol Alcohol Intake: current Alcohol intake frequency: holidays/special occasions only Substance Use Substance use: Never Substance use type: does not use Vital Signs and Lab Results Vital Signs Most Recent Vital Signs in EMR: Most Recent Vital Signs Temp Pulse Resp BP Pulse Ox 36.9 C 78 18 152/100 H 94 05/12/24 11:25 05/12/24 11:25 05/12/24 11:25 05/12/24 11:25 05/12/24 11:25 Lab Results 05/12/24 06:20 05/12/24 06:20 Blood Type / Crossmatch: 2 No Data to Display Complete Blood Count: 2 White Blood Count 10.44 10^3/uL (4.4-10.8) 05/12/24 06:20 Red Blood Count 4.34 10^6/uL (4.36-5.78) L 05/12/24 06:20 Hemoglobin 14.0 g/dL (13.5-17.5) 05/12/24 06:20 Hematocrit 41.2 % (40.0-50.0) 05/12/24 06:20 Platelet Count 306 10^3/uL (130-400) 05/12/24 06:20 Complete Metabolic Panel: 2 Sodium 138 mmol/L (136-145) 05/12/24 06:20 Potassium 4.1 mmol/L (3.5-5.1) 05/12/24 06:20 Chloride 101 mmol/L (98-107) 05/12/24 06:20 Carbon Dioxide 28.0 mmol/L (21.0-32.0) 05/12/24 06:20 BUN 26 mg/dL (7-18) H 05/12/24 06:20 Creatinine 1.0 mg/dL (0.70-1.30) 05/12/24 06:20 Est GFR (CKD-EPI 2020) 79.97 (mL/min/1.73m2) 05/12/24 06:20 Magnesium 2.0 mg/dL (1.8-2.4) 05/12/24 06:20 Calcium 9.4 mg/dL (8.5-10.1) 05/12/24 06:20 Albumin 2.8 g/dL (3.4-5.0) L 05/10/24 11:45 Glucose 93 mg/dL (74-106) 05/12/24 06:20 Liver Function Panel: 2 Alanine Aminotransferase (ALT/SGPT) 14 U/L (16-63) L 05/10/24 1 1:45 Aspartate Amino Transf (AST/SGOT) 12 U/L (15-37) L 05/10/24 11: 45 Coagulation Panel: 2 No Data to Display Cardiac Panel: 2 NT-Pro-B Natriuret Pep 850 pg/mL (<300) H 05/11/24 Arterial Blood Gas: 2 No Data to Display Venous Blood Gas: 2 No Data to Display Pancreas Panel: 2 No Data to Display Thyroid Panel: 2 No Data to Display Infectious Disease: 2 No Data to Display Blood Cultures: 2 No Data to Display Toxicology Panel: 2 No Data to Display Imaging and Studies Imaging and Studies Study information below may be from another EMR and interpreted by another provider. Please see original notes in EMR for more complete details. Echocardiogram Summary: 05/12/24: EF 50-55%, Mild to moderate MR. Anesthesia Assessment and Plan Anesthesia History Personal History: No History of Anesthesia Complications Family History: No Family History of Anesthesia Complications Exercise Tolerance Exercise Tolerance: Metabolic Equivalents>4 Pertinent Negatives Pertinent Negatives: No Major Cardiovascular Symptoms or Complaints Cardiac & Pulmonary Exam Cardiac Exam: Normal S1/S2 Heart Sounds Pulmonary Exam: Clear Bilateral Breath Sounds Implantable Cardiac Device Does patient have a Pacemaker or an ICD?: No Airway Exam Known Difficult Airway: No Mallampati Class: 1 Mouth Opening: Normal (> 3cm) Thyromental Distance: Greater than 3 cm Facial Hair: Full Lopez Neck Range of Motion: Full ROM Neck Circumference: Normal Teeth Condition: Normal Dentition ASA Classification ASA Score: ASA 2 Emergency Case?: No NPO Status NPO Status: NPO Clears >2 hours, Solids >8 hours Anesthesia Plan Resuscitation Status: Full Code Anesthesia Technique: General Anesthesia Airway Planned: Endotracheal Tube Pain Management: Epidural Monitors Used: Standard Monitors and SedLine Preoperative Comments:: OGT to wall suction, drained 200mL upon arrival to PACU.
--- NOTE | 2024-05-12 12:22 | W.PM.PROGNOT ---
Date of Service Date of service: 05/12/24 Time of Service: 12:22 Assessment and Plan Assessment and plan (1) Small bowel obstruction: Status: Acute Assessment and plan: I reviewed the findings of the Gastrografin challenge, and there is been minimal progress of any contrast into any significant amount of the small intestine, little in the colon. At this point, based on his exam, and the imaging, I do not think that this will resolve without an operative intervention. We talked for a little while about different possibilities in the operating room, which to possibly include the creation of an ileostomy or colostomy. If that is the case, I would hope that it would be temporary, but given the extent of his diverticular disease, it certainly possible that he might end up with a permanent stoma. I think he has a good understanding of the nature of surgery, as well as the recovery. He is able to provide consent, and we will make arrangements to proceed with exploratory laparotomy this afternoon. Subjective Subjective Interval history since last seen: Ha has a little more abdominal pain today, but no nausea or vomiting. He has passed a little bit of flatus, but overall does not feel like he is making much progress. Exam GI Other: Abdomen remains distended. He might be a little bit more tender today. Objective Last Vital Signs Temp 98.4 F 05/12/24 11:25 Pulse 78 05/12/24 11:25 Resp 18 05/12/24 11:25 BP 152/100 H 05/12/24 11:25 Pulse Ox 94 05/12/24 11:25 Laboratory Results - last 24 hr 05/11/24 05/12/24 05:51 06:20 WBC 10.44 RBC 4.34 L Hgb 14.0 Hct 41.2 MCV 95 MCH 32.3 MCHC 34.0 RDW 13.2 Plt Count 306 MPV 9.2 Sodium 138 Potassium 4.1 Chloride 101 Carbon Dioxide 28.0 Anion Gap 9.0 BUN 26 H Creatinine 1.0 Est GFR (CKD-EPI 2020) 79.97 Glucose 93 Calcium 9.4 Magnesium 2.0 NT-Pro-B Natriuret Pep 850 H Add-On Test Request DONE Time Spent with Patient Time Spent with Patient: 35-49 minutes Time was spent: preparing to see the patient(eg.review tests), referring, communicating with other health care information associate, indepentently interpreting results and counseling the patient
--- NOTE | 2024-05-12 14:38 | PDOC.CMPRO ---
Date of service: 05/12/24 Time of Service: 14:38 Care Management Progress Note Progress Note Text Progress Note Text: Ha continues to have increased abdominal pain. Surgeon Dr. Razo reviewed gastrogafin challenge and determined Ha would be brought to the OR today for exploratory laparotomy. Anticipate possible stoma placement related to small bowel obstruction, per MD. CM following. Discharge Potential Discharge Needs: Consult, Imaging/labs, PCP F/U Appt (T-Doc offering) and Surgical F/U Appt Anticipated Barriers to Discharge: Medical Status (Brought to OR today) Patient/Family Education Needs: Review discharge instructions, discuss Ask Me Three Transportation: Private vehicle Plan: Ha would be brought to the OR today for exploratory laparotomy. Anticipate possible stoma placement related to small bowel obstruction, per MD. He will be evaluated post surgically for discharge recommendations; surgeons will need to follow HH orders if indicated as Ha does not currently have a PCP. CM following. SDOH(Care Management) Screening Will the Patient Participate in the Screening?: Yes Do you worry about having a steady place to live?: no In the past 12 months, have you had to go without electric, gas, oil or water in your home?: no Have you or anyone in your house had to go without enough food to eat?: no Has lack of transportation kept you from medical appointments or from doing things needed for daily living?: no Has anyone in your support network made you feel unsafe for any reason?: no Anticipated HH Services Anticipated HH Services at Discharge [facility] Needed, RN Anticipated Date of Discharge: 05/17/24. Following Provider: Surgeon-no PCP attachment.
[2024-05-12] MEDS: ceFAZolin 2 GM/50 ML BAG IVPB (15:13)
--- NOTE | 2024-05-12 15:48 | ANES.NEUR_ITS ---
Epidural/Spinal Catheter Date Performed: 05/12/24 Procedure Start: 13:40 Procedure Stop: 13:56 Requesting Provider: Fernando Razo Procedure Location: PACU Reason Performed: Postoperative Analgesia Standard Monitors Applied: ECG, Blood Pressure and SpO2 Patient Position: Sitting Sedation Given (Indicate Dose Given): No Sedation given Patient Mental Status: Awake Sterility: Hand Hygiene, Surgical Cap, Surgical Mask, Sterile Gloves, Sterile Drape/Sheet and Chlorhexidine Procedure Location: L2-L3 Interspace Epidural Needle: Tuohy 18 Gauge Needle Length: 3.5 Inch Needle Approach: Midline Epidural Procedure: Skin Prepped, Sterile Drape Placed, 1% Lidocaine to skin and subcutaneous tissue with 25G needle (Repeat local to initial site), Tuohy Needle placed, SHANIQUE to Saline Used, Epidural Catheter Placed, Negative Heme, Negative CSF Flow and Tuohy Needle Removed Catheter Placed?: Catheter Placed Test Dose (Indicate Dose Given): 3ml 1.5% Lidocaine with 1:200K Epinephrine Given Loss of Resistance Depth (cm): 7 Catheter depth at skin (cm): 12 Dressing: Sorbaview Dressing Placed and Mastisol Used Epidural Provider Bolus (Indicate Dose Given): None Given Additives (I ndicate Dose Given ): None Infusion Medication: No Infusion Started (To be started in operating room) Block Level: N/A Paresthesia: None Ultrasound: Not Used Number of Attempts (See previous attempts in note section): 1 Procedure Tolerated: No Complications Procedure Outcome: Successful Performed By: Gauri Carranza
--- NOTE | 2024-05-12 15:49 | NUR.NOTE ---
Nursing Note: Pt to be transferred to ICU post-op, report given to JAIR Blackwood.
--- NOTE | 2024-05-12 16:26 | W.PC.ACHO ---
Registration Status: Primary Language: Preferred Language: ED Information & Data Chief Complaint Urinary 05/10/24 12:21 Chief Complaint Urinary 05/10/24 11:21 Triage Note On Friday started with low 05/10/24 10:56 abd discomfort and dark colored urine; endorses pain and burning with urination that started on Friday. Has started self medicating with cipro twice daily since Friday (Last Updated 05/10/24 @ 15:44 by Liza Ac DO) S/P bilateral hip replacements Most Recent Vital Signs Temperature 36.9 C 05/12/24 11:25 Temperature Source Temporal Artery Scan 05/12/24 11:25 Pulse 78 05/12/24 11:25 Pulse Rhythm Regular 05/11/24 23:15 Respiratory Rate 18 05/12/24 11:25 Respiratory Effort Normal, Non-Labored 05/11/24 23:15 Respiratory Depth Normal 05/11/24 23:15 Respiratory Pattern Normal 05/11/24 23:15 Blood Pressure 152/100 H 05/12/24 11:25 Blood Pressure Position Sitting 05/10/24 16:18 Pulse Oximetry 94 05/12/24 11:25 Oxygen Delivery Method Room Air 05/12/24 11:25 Oxygen Flow Rate 0 05/12/24 11:25 Pain Level 7 05/12/24 11:25 Comment Nurse notified of bp 05/12/24 11:25 Allergies No Known Allergies Allergy (Unverified 06/30/20 09:32) Precautions Isolation Standard precaution 05/10/24 12:21 Active Medications Generic Name Dose Route Start Last Admin Trade Name Freq PRN Reason Stop Dose Admin Heparin Sodium (Porcine) 5,000 units 05/10/24 18:00 05/12/24 05:18 Heparin 5,000 Units/Ml Vial SC 5,000 units Q12H FLORY Administration Ringer's Solution 1,000 mls @ 75 mls/hr 05/10/24 15:30 05/12/24 05:18 IV 75 mls/hr INFUSION FLORY Administration Famotidine 20 mg in 50 mls @ 196.078 mls/hr 05/11/24 06:00 05/12/24 05:18 Pepcid Premixed Bag IV 196 mls/hr Q12H FLORY Administration Acetaminophen 1,000 mg in 100 mls @ 400 mls/hr 05/10/24 15:40 05/11/24 13:42 Ofirmev IVPB Infused Q8H PRN PRN Infusion Metoprolol Tartrate 5 mg 05/11/24 14:00 05/12/24 08:00 Metoprolol 5 Mg/5 Ml Vial IVP 5 mg Q6H FLORY Administration Morphine Sulfate 2 mg 05/10/24 15:35 05/12/24 11:20 Morphine 2 Mg/Ml Syr IVP 2 mg Q1H PRN PRN Administration Sodium Chloride 0 ml 05/10/24 15:35 05/12/24 02:48 Normal Saline Flush 10 Ml Syr IVP 10 ml PRN PRN Administration Sodium Chloride 0 ml 05/10/24 20:00 05/12/24 08:01 Normal Saline Flush 10 Ml Syr IVP 10 ml BID FLORY Administration Tiotropium Bath 2 puff 05/11/24 08:30 05/12/24 08:11 Tiotropium Bath-Respimat 10 Puff Inh IH 2 puff DAILY FLORY Administration IV IV Catheter Type [Left Forearm Peripheral IV ] IV Catheter Type [Left Peripheral IV Antecubital] IV Catheter Gauge [Left 18 Forearm] IV Catheter Gauge [Left 18 Antecubital] Diagnostics 05/12/24 Range/Units 06:20 WBC 10.44 (4.4-10.8) 10^3/uL RBC 4.34 L (4.36-5.78) 10^6/uL Hgb 14.0 (13.5-17.5) g/dL Hct 41.2 (40.0-50.0) % MCV 95 (80-95) fL MCH 32.3 (27.0-33.0) pg MCHC 34.0 (32.0-36.0) % RDW 13.2 (11.8-14.1) % Plt Count 306 (130-400) 10^3/uL MPV 9.2 (8.0-11.0) fL Sodium 138 (136-145) mmol/L Potassium 4.1 (3.5-5.1) mmol/L Chloride 101 (98-107) mmol/L Carbon Dioxide 28.0 (21.0-32.0) mmol/L Anion Gap 9.0 (3-11) mmol/L BUN 26 H (7-18) mg/dL Creatinine 1.0 (0.70-1.30) mg/dL Est GFR (CKD-EPI 2020) 79.97 (mL/min/1.73m2) Glucose 93 (74-106) mg/dL Calcium 9.4 (8.5-10.1) mg/dL Magnesium 2.0 (1.8-2.4) mg/dL 05/12/24 15:22 Anaerobic Culture - Pending Abdomen 05/12/24 15:22 Surgical Culture - Pending Abdomen Gram Stain - Pending Intake and Output - 24 Hour Total 05/10/24 10:46 thru 05/12/24 15:43 Intake Total 4270.000 Output Total 2875 Balance 1395.000 Weight 62.142 kg Intake: IV 4270.000 Output: Gastric Drainage 2049 Left Nare 2049 Urine 825 Other: Urine Color Yellow Urine Appearance Clear Urine Odor None Comment Pt reports voiding in urinal. No urge to void at this time. Voiding Methods Urinal Urinary Catheter Urinary Catheter Date of 05/12/24 Insertion [Coude] Time of insertion [Coude] 15:05 Falls Risk Assessment History of Falls No History 05/10/24 19:21 Contributing Factors No Factors 05/10/24 12:21 Ambulatory Aids Independent 05/10/24 19:21 Tubes/Lines W/no contributing factors 05/10/24 19:21 Gait Evaluation No gait disturbance 05/10/24 19:21 Cognition No cognitive impairment 05/10/24 19:21 Fall Total Score 10 05/10/24 19:21 Level of Risk Standard/Low Risk 05/10/24 19:21 Problems (Last Reviewed 06/30/20 @ 11:23 by MEHRDAD Ruffin) Weight loss, unintentional (Acute) BPH (benign prostatic hyperplasia) (Chronic) COPD (chronic obstructive pulmonary disease) (Chronic) Former smoker (Acute) HTN (hypertension) (Chronic) DJD (degenerative joint disease), lumbar (Acute) Atherosclerosis of aorta (Acute) Diverticula of colon (Acute) Small bowel obstruction (Acute) Notes 05/12/24 15:49 Nursing Notes by Germania Jo Nursing Note: Pt to be transferred to ICU post-op, report given to JAIR Blackwood. Initialized on 05/12/24 15:49 - END OF NOTE v v v v v v v v v Sending and/or Receiving Nurses: Please use comment section below to note any information pertinent to the patient hand-off not included above. Information / Comments: Report received from: Blaine Jo RN
[2024-05-12] MEDS: Bupivacaine 0.25% Pres-Free 30 ML VIAL (17:34)
--- NOTE | 2024-05-12 18:38 | W.PM.OP ---
Date of service: 05/12/24 Time of Service: 18:38 Operative Note Operative Note DATE OF PROCEDURE: 05/12/24 PRE-OP DIAGNOSIS: Small bowel obstruction Acute small bowel obstruction secondary to incarcerated internal hernia as a complication of chronic diverticulitis PROCEDURE: Exploratory laparotomy, lysis of adhesions, primary repair of enterotomy, creation of loop sigmoid colostomy SURGEON: Fernando Razo HARVEST FIELD TICKETER: Lizette Peters HARVEST FIELD TICKETER: Titus Spears ANESTHESIA TYPE: Local By Surgeon, General:No Airway and Epidural Refer to Anesthesia Record ESTIMATED BLOOD LOSS: 150 PATHOLOGY: none sent COMPLICATIONS: Other (Enterotomy) Patient was transported to: ICU Patient's condition: stable Indications: Ha is a 74-year-old male who comes to the emergency department with abdominal pain, distention, nausea and vomiting, and imaging consistent with a bowel obstruction. He underwent a Gastrografin challenge, but had no improvement of his symptoms, nor any passage of contrast into the distal bowel. Findings: Complete small bowel obstruction in the terminal ileum caused by an internal hernia arising from adhesions secondary to sigmoid diverticulitis Procedure Description: I met with Ha in the preoperative holding area, we reviewed the plan for exploratory laparotomy, and secondary procedures to help relieve his bowel obstruction. He was able to provide informed consent. Anesthesia had already placed an epidural catheter, and shortly thereafter we moved to the operating room. Ha was assisted onto the OR table, and supported comfortably. General endotracheal anesthesia was then induced. Next, we moved him into the lithotomy position. Great care was taken to pad and support him appropriately. I then prepped and draped the anterior abdominal wall. I started with a generous midline laparotomy incision. I dissected down to the fascia and opened this along the length of the incision. There was immediate evisceration of massively dilated small bowel. There was some slightly purulent appearing ascites in the peritoneal cavity. Specimens of this were obtained for Gram stain and culture. I then turned my attention to the left lower quadrant as Ha has significant diverticulosis, and I suspect that that this was likely the source of the obstruction. There were some filmy adhesions that were easily lysed mostly along the medial side of the distal descending colon and complementary sigmoid colon. The small bowel was tethered down here, it was clearly the point of obstruction. With some gentle lysis of adhesions, I was able to mobilize a loop of distal ileum up out of the pelvis. Once this was free, it became clear that the pathology here was really more like an internal hernia caused by some dense adhesions of a chronically inflamed sigmoid colon in the upper pelvis. The thickened sigmoid mesocolon and bowel wall were densely adherent to the left lateral sidewall, and along the anterior margin to what I suspect is the backside of the bladder. These adhesions created a ringlike defect in the upper portion of the retrovesicular pouch through which the portion of the distal ileum had herniated. In an effort to better expose the area, and mobilized the small bowel to interrogate the area that had been stuck in this defect, I did take down several adhesions to some surrounding chronically inflamed sigmoid colon. This was done with a combination of sharp and blunt dissection. Because of the massive dilation upstream of the adhesion, and as a complication of the chronic inflammation and adhesions, I did create an enterotomy. It was recognized immediately, and well-controlled. In light of the enterotomy, sump suction was used to help decompress the bowel to make the remainder of the conduct of the operation safer and more efficient. Once the small bowel was decompressed, I used a MEENA stapler to create a [id number] antiperistaltic antimesenteric anastomosis. The common enterotomy was closed with another fire of the stapler, and imbricated with interrupted Vicryl sutures. The remainder of the adhesions along the final portion of the terminal ileum were mobilized. The portion of the terminal ileum that had been stuck in the hernia defect was viable. There was a little bit of edema, but the central lumen was well-preserved, and there were no obvious signs of ischemia or impending necrosis. This allowed free passage of succus through the previously obstructed segment into the cecum. Next, I ran the entirety of the small bowel. Although the wall was a little bit attenuated from the significant dilation prior to releasing the obstruction. No other areas appeared significantly compromised. With the obstruction relieved, I turned my attention back to the pathologic sigmoid colon. Although there were no clear signs of perforated sigmoid diverticulitis, I suspect that what seems to be quite significant chronic diverticular flares over the most likely source of all of the pathology. It was hard to appreciate the true lumen of the sigmoid colon here, and there was a significant amount of fecal impaction within the segment. With all of the edema here, it really worries that this would be problematic during his recovery. Unfortunately, because of the thick adhesions and chronic inflammation of the pelvis, I was not able to identify a suitable target for a distal resection that would allow for safe reconstruction and confucianist of continuity. Furthermore, in the absence of obvious perforated diverticulitis, and with small bowel obstruction as the most active pathology, I did not think it would be reasonable to proceed with an attempted sigmoid resection. Therefore, I felt creation of a diverting loop sigmoid colostomy above the pathologic segment would be in Ha's best interest at this point, and preserve any options moving forward. Prior to creation of the colostomy, I did turned my attention back to the tight ring in the retrovesicular pouch. I was worried that this would be a source of future herniation and obstructions. Therefore, I irrigated the area clean, and used a Prolene suture to help obliterate this defect, essentially dividing the deep pelvis from the upper pelvis and abdomen. Once this was done, I irrigated the surgical site once again. Everything was clean and hemostatic. I then turned my attention to creation of the loop colostomy. I identified a suitable target in the left lower quadrant through which to bring the stoma. I did mobilize the lateral attachments of the descending colon, as well as the splenic flexure in order to allow for mobilization of enough colon to bring up the loop without any tension on the colostomy. Next I excised a circular portion of skin on the anterior abdominal wall in the left lower quadrant and dissected down to the external fascia. This was incised in a cruciate fashion. In order to minimize incisional complications, I did stay lateral to the rectus sheath and brought this colostomy out through the oblique musculature. The muscles were divided, and the posterior fascia was incised as well. I then created a small defect through the mesentery, and used a Lavalette drain to deliver the loop up to the skin level. Great care was taken to ensure that the loop was not torsed. The Lavalette drain was affixed to the skin with interrupted Prolene sutures and used as a bridge. Again, I was careful to ensure that there was enough length, and no tension on the posterior aspect of the loop. I then turned my attention back to the midline incision. Again the peritoneum was irrigated clean. The fascia was closed with running 2-0 PDS suture. I irrigated the skin and subcutaneous tissues, then closed the skin with surgical stapler. The midline incision was covered, and I turned my attention to maturation of the colostomy. Antimesenteric portion of the loop was opened, and interrupted Vicryl sutures were used to affix the colon to the epidermis. A colostomy bag was applied, anterior abdominal wall was washed once again, and a midline laparotomy dressing was placed. Not long thereafter, the patient was extubated and transferred up to the surgical intensive care unit. I met with Ha' in the surgical waiting area to discuss the conduct of the operation, and anticipated recovery.
[2024-05-12] MEDS: Lactated Ringers 250 ML 500 ML IV (19:39)
[2024-05-12] MEDS: FentaNYL/ROPIvacaine 2 mcg/ml and 0.1% 200 ML CADD Cassette EP (19:48)
[2024-05-12] MEDS: PIPERACILLIN/TAZO 3.375 GM in Normal Saline 50 ML IVPB (20:59)
[2024-05-13] VITALS (38 sets, daily range): BP systolic 108–166; BP diastolic 69–91; PULSE 67–86; RESP 12–26; TEMP 36.4–36.9; O2SAT 88–96
[2024-05-13] MEDS: Normal Saline Flush 10 ML SYR IVP ×3 (02:48→19:32)
[2024-05-13] MEDS: PIPERACILLIN/TAZO 3.375 GM in Normal Saline 50 ML IVPB ×4 (02:49→20:16)
[2024-05-13] MEDS: Metoprolol 5 MG/5 ML VIAL IVP ×4 (02:49→20:10)
[2024-05-13] MEDS: FAMOTIDINE 20 MG/50 ML BAG 196 MG IV ×2 (06:10→19:51)
[2024-05-13] MEDS: Heparin 5,000 UNITS/ML VIAL 5000 UNITS SC ×2 (06:11→19:37)
[2024-05-13] MEDS: Lactated Ringers 1,000 ML 75 ML IV (06:23)
[2024-05-13 07:18] LABS: Abs Immature Grans 0.05 10^3/uL (0.0-0.06); Absolute Basophil Count 0.07 10^3/uL (0.0-0.2); Absolute Lymphocyte Count 0.46 10^3/uL (1.2-3.4); Absolute Monocyte Count 0.89 10^3/uL (0.1-0.8); Absolute Neutrophil Count 10.18 10^3/uL (1.2-6.7); Basophils % 0.6 %; Eosinophils % 0.3 %; HCT 42.9 % (40.0-50.0); HGB 14.3 g/dL (13.5-17.5); Immature Grans % 0.4 %; Lymphocytes % 3.9 %; MCH 32.1 pg (27.0-33.0); MCHC 33.3 % (32.0-36.0); MCV 96 fL (80-95); MPV 9.1 fL (8.0-11.0); Monocytes % 7.6 %; Neutrophils % 87.2 %; Platelet Count 314 10^3/uL (130-400); RBC 4.46 10^6/uL (4.36-5.78); RDW 13.3 % (11.8-14.1); RDW-SD 47.4 fL; WBC 11.68 10^3/uL (4.4-10.8)
[2024-05-13 07:33] LABS: Absolute Eosinophil Count 0.04 10^3/uL (0.0-0.7); Anion Gap 8.6 mmol/L (3-11); BUN 24 mg/dL (7-18); CO2 29.4 mmol/L (21.0-32.0); Calcium 8.6 mg/dL (8.5-10.1); Chloride 102 mmol/L (98-107); Estimated GFR 79.97 (mL/min/1.73m2); Glucose 144 mg/dL (74-106); Magnesium 1.9 mg/dL (1.8-2.4); Potassium 4.5 mmol/L (3.5-5.1); Sodium 140 mmol/L (136-145)
[2024-05-13] MEDS: Tiotropium Bromide-Respimat 10 PUFF INH 2 PUFF IH (07:44)
[2024-05-13] MEDS: FentaNYL/ROPIvacaine 2 mcg/ml and 0.1% 200 ML CADD Cassette EP ×2 (08:30→22:13)
--- NOTE | 2024-05-13 08:30 | PDOC.CMPRO ---
Date of service: 05/13/24 Time of Service: 08:30 Care Management Progress Note Progress Note Text Progress Note Text: Bowel resection with loop ostomy in the OR yesterday. Will need new H RN for Ostomy supplies and care, on discharge. Per MD, anticipate further work-up to determine cause of weight loss. No change to overall discharge plan. Discharge Plan: Anticipate, Ha will return home with [facility] RN services (Ostomy education and supplies), PCP F/U to be offered, he will transport home via private vehicle. CM is following. SDOH(Care Management) Screening Will the Patient Participate in the Screening?: Yes Do you worry about having a steady place to live?: no In the past 12 months, have you had to go without electric, gas, oil or water in your home?: no Have you or anyone in your house had to go without enough food to eat?: no Has lack of transportation kept you from medical appointments or from doing things needed for daily living?: no Has anyone in your support network made you feel unsafe for any reason?: no
--- NOTE | 2024-05-13 09:04 | PGE_ITS ---
Date of Service Date of service: 05/13/24 Time of Service: 09:04 Assessment and Plan Assessment and plan (1) Diverticular stricture: Status: Acute (2) Internal hernia: Status: Acute (3) HTN (hypertension): Status: Chronic (4) Atherosclerosis of aorta: Status: Acute (5) Weight loss, unintentional: Status: Acute (6) Status post exploratory laparotomy: Assessment and plan: Postop day #1 exploratory laparotomy for obstruction from diverticular stricture and internal hernia. Status post creation of diverting sigmoid loop ostomy. Ostomy is pink and healthy. Minimal output. NG tube shows minimal output No drains Urine output has been borderline we will continue to follow. The patient is complaining of pain when he coughs. We will adjust pain plan. He is able to move toes and has an epidural We discussed the importance of pulmonary toilet. GI prophylaxis: Pepcid DVT prophylaxis: Heparin Antibiotics: Zosyn Plan for today is to be up in chair. Would be great if he could do some walking. We will follow input and outputs and try to get his NG tube out today. Patient will need colostomy care and teaching. (7) Status post colostomy: (8) COPD (chronic obstructive pulmonary disease): Status: Chronic Assessment and plan: Spiriva and Acapella Subjective Subjective Interval history since last seen: Pt is doing well. no headaches. No CP or SOB. no dysuria. no leg pain or sw elling. Patient complaining of pain when he coughs. He has been coughing up some green material. He is not passing anything out through his colostomy. He has had minimal output through the NG tube. Urine output has been approximately 30 cc an hour. Exam Narrative Exam Narrative: PHYSICAL EXAM GENERAL APPEARANCE: Alert, healthy appearance, oriented, x 3,? in no acute distress HYDRATION: Well hydrated HEAD, EYES, EARS, NECK, THROAT: Head is normocephalic, pupils equal, round, r eactive to light and accommodation, ocular movement intact, sclera clear and no jaundice. ?Dentition intact. LUNGS: normal respiration/normal chest excursion. ?Clear to auscultation bilaterally. ?No wheeze. ?HEART: Regular rate and rhythm. no murmurs EXTREMITY: No edema or cyanosis.? no leg pain, redness, swelling.? ABDOMEN: Few bowel sounds. Wound is dressed. Colostomy is pink healthy. no significant output yet. NG tube has had about 50 cc out since surgery. Objective Last Vital Signs Temp 36.5 C 05/13/24 05:15 Pulse 71 05/13/24 05:27 Resp 15 05/13/24 05:27 BP 122/72 05/13/24 05:27 Pulse Ox 93 05/13/24 07:46 Laboratory Results - last 24 hr 05/13/24 06:00 WBC 11.68 H RBC 4.46 Hgb 14.3 Hct 42.9 MCV 96 H MCH 32.1 MCHC 33.3 RDW 13.3 Plt Count 314 MPV 9.1 Immature Gran % 0.4 Neutrophils % 87.2 Lymphocytes % 3.9 Monocytes % 7.6 Eosinophils % 0.3 Basophils % 0.6 Nucleated RBC % 0.0 Absolute Neutrophils 10.18 H Absolute Lymphocytes 0.46 L Absolute Monocytes 0.89 H Absolute Eosinophils 0.04 Absolute Basophils 0.07 Sodium 140 Potassium 4.5 Chloride 102 Carbon Dioxide 29.4 Anion Gap 8.6 BUN 24 H Creatinine 1.0 Est GFR (CKD-EPI 2020) 79.97 Glucose 144 H Calcium 8.6 Magnesium 1.9 Time Spent with Patient Time Spent with Patient: 35-49 minutes Time was spent: preparing to see the patient(eg.review tests), obtaining and/or reviewing separately otained hiistory, ordering medications,tests, procedures, referring, communicating with other health acute care clinical nurse specialist, indepentently interpreting results, counseling the patient, care coordination and other
[2024-05-13] MEDS: ACETAMINOPHEN 1,000 MG/100 ML BTL 400 MG IVPB ×2 (10:15→19:14)
--- NOTE | 2024-05-13 13:09 | PHA.REVIEW2 ---
Pharmacy Admission Review Admission Clinical Review Admission Pharmacy Review: Internal hernia (Acute) Diverticular stricture (Acute) Weight loss, unintentional (Acute) Former smoker (Acute) DJD (degenerative joint disease), lumbar (Acute) Atherosclerosis of aorta (Acute) Diverticula of colon (Acute) No Known Allergies Allergy (Unverified 06/30/20 09:32) Resuscitation Status DNR/DNI Height 5 ft 11 in Weight 60.1 kg Comments Comments/Follow Ups: No order for lisinopril - BP currently stable and patient is POD#1 Pharmacy Admission Review Renal Dosing Renal Dosing: BUN 24 mg/dL (7-18) H 05/13/24 06:00 Creatinine 1.0 mg/dL (0.70-1.30) 05/13/24 06:00 Medications needing adjustments: Reviewed (CrCl 56 mL/min, BUN decreased from 26) List of meds needing interventions: Current medications are okay Anticoagulation Anticoagulation: Hgb 14.3 g/dL (13.5-17.5) 05/13/24 06:00 Hct 42.9 % (40.0-50.0) 05/13/24 06:00 Plt Count 314 10^3/uL (130-400) 05/13/24 06:00 Creatinine 1.0 mg/dL (0.70-1.30) 05/13/24 06:00 DVT Prophylaxis: Reviewed Medications: Heparin (q12h) Opiate Usage Evaluate Pain Scale/Pains Meds: Reviewed (Epidural and PRN morphine) Scheduled Bowel Reg ordered if on Opiates?: No Relevant Labs Relevant Labs: Sodium 140 mmol/L (136-145) 05/13/24 06:00 Potassium 4.5 mmol/L (3.5-5.1) 05/13/24 06:00 Chloride 102 mmol/L (98-107) 05/13/24 06:00 Magnesium 1.9 mg/dL (1.8-2.4) 05/13/24 06:00 Electrolytes, C-Reactive P, ESR: Reviewed (glucose 144) Cardiac Review Cardiac Review: NT-Pro-B Natriuret Pep 850 pg/mL (<300) H 05/11/24 05:51 BP, HR, EF%: Reviewed (BP and HR WNL) QTc Review QTc: Reviewed (No EKG on file) IV to PO Switch IV Medications: Reviewed (acetaminophen, famotidine, metoprolol, morphine, ondansetron and Zosyn) Home Meds Home Med List reviewed: Reviewed Relevent Home Meds Not ordered & why?: lisinopril - patient is POD #1, will reach out once patient is able to tolerate PO intake Current Meds Current Medication Order Review: Reviewed Pharmacy Antibiotic Review Relevant Labs: WBC 11.68 10^3/uL (4.4-10.8) H 05/13/24 06:00 Temperature 36.5 C Temperature 36.6 C Microbiology 05/12/24 15:22 Surgical Culture - Preliminary Abdomen Gram Stain - Final Comments: Patient is on Zosyn, day 1 of 5, for diverticulitis. WBC slightly increased from 10.44, patient is postop day #1 exploratory laparotomy. Cultures pending from abdomen. Comments Comments/Follow Ups: No order for lisinopril - BP currently stable and patient is POD#1
--- NOTE | 2024-05-13 16:50 | W.PM.PROGNOT ---
Date of Service Date of service: 05/13/24 Time of Service: 08:15 Assessment and Plan Assessment and plan (1) HTN (hypertension): Status: Chronic (2) Atherosclerosis of aorta: Status: Acute (3) Weight loss, unintentional: Status: Acute (4) Diverticula of colon: Status: Acute (5) Diverticular stricture: Status: Acute (6) Internal hernia: Status: Acute (7) BPH (benign prostatic hyperplasia): Status: Chronic (8) DJD (degenerative joint disease), lumbar: Status: Acute (9) COPD (chronic obstructive pulmonary disease): Status: Chronic (10) Former smoker: Status: Acute (11) Status post colostomy: (12) Status post exploratory laparotomy: Assessment and plan: Postop day #1 exploratory laparotomy and diverting sigmoid loop for diverticular stricture and internal hernia in the sigmoid was unresectable at the time of surgery. DVT- heparin GI-Pepcid Antibiotics-Zosyn Acapella for pulmonary toilet. I did start him on Spiriva because of his history of COPD. Lungs are much more clear Will try to get him up walking and work on getting his NG tube out Urine output is borderline and increase his baseline fluids -Initiate colostomy training Pain plan is adjusted .urielyomi Subjective Subjective Interval history since last seen: Pt is doing OK no headaches. No CP or SOB. no productive cough. no dysuria. no leg pain or swelling. He has had minimal output from his NG tube. He is not passing any stool or flatus through the ostomy. We discussed findings at the time of surgery. Exam Narrative Exam Narrative: PHYSICAL EXAM GENERAL APPEARANCE: Alert, healthy appearance, oriented, x 3,? in no acute distress HYDRATION: Well hydrated HEAD, EYES, EARS, NECK, THROAT: Head is normocephalic, pupils equal, round, reactive to light and accommodation, ocular movement intact, sclera clear and no jaundice. ?Dentition intact. No sore throat.? No jaw pain. No thrush LUNGS: normal respiration/normal chest excursion. ?Clear to auscultation bilaterally. ?No wheeze. ?HEART: Regular rate and rhythm. no murmurs EXTREMITY: No edema or cyanosis.? no leg pain, redness, swelling.? ABDOMEN: dressings are clean dry and intact. He has minimal but he does have some bowel sounds. Colostomy is pink and patent. No output this a.m. Objective Last Vital Signs Temp 36.5 C 05/13/24 05:15 Pulse 77 05/13/24 14:19 Resp 15 05/13/24 05:27 BP 135/87 05/13/24 14:19 Pulse Ox 93 05/13/24 07:46 Laboratory Results - last 24 hr 05/13/24 06:00 WBC 11.68 H RBC 4.46 Hgb 14.3 Hct 42.9 MCV 96 H MCH 32.1 MCHC 33.3 RDW 13.3 Plt Count 314 MPV 9.1 Immature Gran % 0.4 Neutrophils % 87.2 Lymphocytes % 3.9 Monocytes % 7.6 Eosinophils % 0.3 Basophils % 0.6 Nucleated RBC % 0.0 Absolute Neutrophils 10.18 H Absolute Lymphocytes 0.46 L Absolute Monocytes 0.89 H Absolute Eosinophils 0.04 Absolute Basophils 0.07 Sodium 140 Potassium 4.5 Chloride 102 Carbon Dioxide 29.4 Anion Gap 8.6 BUN 24 H Creatinine 1.0 Est GFR (CKD-EPI 2020) 79.97 Glucose 144 H Calcium 8.6 Magnesium 1.9 Time Spent with Patient Time Spent with Patient: >50 minutes Time was spent: preparing to see the patient(eg.review tests), obtaining and/or reviewing separately otained hiistory, ordering medications,tests, procedures, referring, communicating with other health live in caregiver, indepentently interpreting results, counseling the patient, care coordination and other
--- NOTE | 2024-05-13 17:50 | W.ANESPOSTOP ---
Postoperative Evaluation Date, Time and Location Date Performed: 05/13/24 Time Performed: 17:50 Patient Location: Intensive Care Unit Vital Signs Most Recent Imported Vital Signs: Most Recent Vital Signs Temp Pulse Resp BP Pulse Ox 36.5 C 77 15 135/87 93 05/13/24 05:15 05/13/24 14:19 05/13/24 05:27 05/13/24 14:19 05/13/24 07:46 Pain Score Most Recent Pain Score: Most Recent Pain Score Pain Level 6 05/13/24 10:15 Assessment Mental Status: Awake (Alert & Oriented to Patient Baseline) Airway and Respiratory Function: Patent airway with normal (patient baseline) respiratory exam Cardiovascular Function: Hemodynamically Stable Hydration Status: Adequately Hydrated Nausea & Vomiting: No Nausea or Vomiting Pain: Pain is tolerable per patient Peripheral Nerve Block: Patient did not receive a nerve block Postoperative Comments:: Epidural infusing
--- NOTE | 2024-05-13 17:51 | W.ANESEPD ---
Epidural/Spinal Daily Note Date Performed: 05/13/24 Assessment Time: 17:51 Patient Location: Intensive Care Unit Catheter Type in Place: Epidural Catheter Dressing Assessment: Dressing intact with good adherence Catheter Assessment: Catheter Labeled and Intact and Functioning Previous Catheter Depth Noted (cm): 12 Current Catheter Depth (cm): 12 Current Medication Infusion: Ropivacaine 0.1% with Fentanyl 2mcg/ml Current Maintenance Infusion Rate (ml/hour): 10 Current PCEA Bolus Dose (ml): 5 Current Pain Score (0-10): 2 Medication Infusion Stopped, Catheter Removal Planned: No New Bolus Given or Change in Infusion Made: No Completed By: Hood Gracia
[2024-05-13] MEDS: Lactated Ringers 1,000 ML 50 ML IV (18:07)
[2024-05-14] VITALS (43 sets, daily range): BP systolic 108–162; BP diastolic 69–102; PULSE 62–95; RESP 10–26; TEMP 36.2–36.6; O2SAT 92–96
[2024-05-14] MEDS: ACETAMINOPHEN 1,000 MG/100 ML BTL 400 MG IVPB (03:25)
[2024-05-14] MEDS: PIPERACILLIN/TAZO 3.375 GM in Normal Saline 50 ML IVPB ×4 (03:48→20:24)
[2024-05-14] MEDS: Metoprolol 5 MG/5 ML VIAL IVP ×2 (04:05→10:38)
[2024-05-14] MEDS: FAMOTIDINE 20 MG/50 ML BAG 196 MG IV (06:39)
[2024-05-14 06:47] LABS: Abs Immature Grans 0.08 10^3/uL (0.0-0.06); Absolute Basophil Count 0.03 10^3/uL (0.0-0.2); Absolute Eosinophil Count 0.06 10^3/uL (0.0-0.7); Absolute Lymphocyte Count 0.83 10^3/uL (1.2-3.4); Absolute Monocyte Count 0.74 10^3/uL (0.1-0.8); Basophils % 0.3 %; Eosinophils % 0.5 %; HCT 37.1 % (40.0-50.0); HGB 12.4 g/dL (13.5-17.5); Immature Grans % 0.7 %; Lymphocytes % 7.5 %; MCH 31.9 pg (27.0-33.0); MCHC 33.4 % (32.0-36.0); MCV 95 fL (80-95); Monocytes % 6.7 %; Neutrophils % 84.3 %; Platelet Count 286 10^3/uL (130-400); RBC 3.89 10^6/uL (4.36-5.78); RDW 13.5 % (11.8-14.1); RDW-SD 47.7 fL; WBC 11.04 10^3/uL (4.4-10.8)
[2024-05-14 06:51] LABS: Absolute Neutrophil Count 9.31 10^3/uL (1.2-6.7)
[2024-05-14 07:19] LABS: Anion Gap 1.5 mmol/L (3-11); BUN 27 mg/dL (7-18); CO2 33.5 mmol/L (21.0-32.0); Calcium 8.4 mg/dL (8.5-10.1); Chloride 103 mmol/L (98-107); Estimated GFR 79.97 (mL/min/1.73m2); Glucose 106 mg/dL (74-106); Magnesium 1.9 mg/dL (1.8-2.4); Sodium 138 mmol/L (136-145)
--- NOTE | 2024-05-14 07:33 | PGE_ITS ---
Date of Service Date of service: 05/14/24 Time of Service: 07:33 Assessment and Plan Assessment and plan (1) Internal hernia: Status: Acute Assessment and plan: Advance his diet a bit this morning, and his vital signs and lab work is reassuring. Leave the Velarde in place until epidural is out since he did require coud? catheterization. Subjective Subjective Interval history since last seen: Ha has been feeling very good. Pain has been well-controlled. He denies an y nausea or vomiting. Is been able to tolerate some liquids without any discomfort. Exam GI Other: Abdomen is soft and minimally distended. Stoma is pink, and there is a little bit of serosanguineous discharge into the colostomy bag. Incision is clean. Objective Last Vital Signs Temp 97.5 F L 05/14/24 04:37 Pulse 63 05/14/24 04:37 Resp 16 05/14/24 04:37 BP 128/77 05/14/24 04:37 Pulse Ox 92 05/14/24 04:37 Laboratory Results - last 24 hr 05/13/24 05/14/24 06:00 05:56 WBC 11.68 H 11.04 H RBC 4.46 3.89 L Hgb 14.3 12.4 L Hct 42.9 37.1 L MCV 96 H 95 MCH 32.1 31.9 MCHC 33.3 33.4 RDW 13.3 13.5 Plt Count 314 286 MPV 9.1 9.0 Immature Gran % 0.4 0.7 Neutrophils % 87.2 84.3 Lymphocytes % 3.9 7.5 Monocytes % 7.6 6.7 Eosinophils % 0.3 0.5 Basophils % 0.6 0.3 Nucleated RBC % 0.0 0.0 Absolute Neutrophils 10.18 H 9.31 H Absolute Lymphocytes 0.46 L 0.83 L Absolute Monocytes 0.89 H 0.74 Absolute Eosinophils 0.04 0.06 Absolute Basophils 0.07 0.03 Sodium 140 138 Potassium 4.5 4.0 Chloride 102 103 Carbon Dioxide 29.4 33.5 H Anion Gap 8.6 1.5 L BUN 24 H 27 H Creatinine 1.0 1.0 Est GFR (CKD-EPI 2020) 79.97 79.97 Glucose 144 H 106 Calcium 8.6 8.4 L Magnesium 1.9 1.9 Time Spent with Patient Time Spent with Patient: 25-34 minutes Time was spent: preparing to see the patient(eg.review tests), indepentently interpreting results and counseling the patient
[2024-05-14] MEDS: Protein Nutritional Supplement 16 GM 1 OUNCE PACKET PO ×2 (08:00→14:33)
[2024-05-14] MEDS: Tiotropium Bromide-Respimat 10 PUFF INH 2 PUFF IH (08:12)
--- NOTE | 2024-05-14 08:39 | PDOC.CMPRO ---
Date of service: 05/14/24 Time of Service: 08:39 Care Management Progress Note Progress Note Text Progress Note Text: Ha is up and ambulating in the bui, with RN, plan for today is Ostomy teaching in the ICU. Pt will need [facility] RN for Ostomy support and supplies on discharge. He does not have a PCP, Surgical to follow [facility] orders. Home supplies will be ordered through [employer], Molly from Surgical is notified at Dr. Ac's request. Discharge Potential Discharge Needs: PCP F/U Appt Anticipated Barriers to Discharge: None Identified Patient/Family Education Needs: Review discharge instructions, discuss Ask Me Three Transportation: Private vehicle Plan: Anticipate, Ha will return home with [facility] RN services (followed by Surgical), No PCP; T-doc F/U to be offered, Ostomy supplies will be ordered through [employer], Pt will transport home via private vehicle. CM is following. SDOH(Care Management) Screening Will the Patient Participate in the Screening?: Yes Do you worry about having a steady place to live?: no In the past 12 months, have you had to go without electric, gas, oil or water in your home?: no Have you or anyone in your house had to go without enough food to eat?: no Has lack of transportation kept you from medical appointments or from doing things needed for daily living?: no Has anyone in your support network made you feel unsafe for any reason?: no
[2024-05-14] MEDS: Heparin 5,000 UNITS/ML VIAL 5000 UNITS SC ×2 (09:23→20:30)
[2024-05-14] MEDS: Normal Saline Flush 10 ML SYR IVP ×2 (09:32→20:29)
[2024-05-14] MEDS: FentaNYL/ROPIvacaine 2 mcg/ml and 0.1% 200 ML CADD Cassette EP (13:29)
--- NOTE | 2024-05-14 14:43 | W.ANESEPD ---
Epidural/Spinal Daily Note Date Performed: 05/14/24 Assessment Time: 14:44 Patient Location: Intensive Care Unit Catheter Type in Place: Epidural Catheter Dressing Assessment: Dressing intact with good adherence Catheter Assessment: Catheter Labeled and Intact and Functioning Previous Catheter Depth Noted (cm): 12 Current Catheter Depth (cm): 12 Current Medication Infusion: Ropivacaine 0.1% with Fentanyl 2mcg/ml Current Maintenance Infusion Rate (ml/hour): 10 Current PCEA Bolus Dose (ml): 5 Current Pain Score (0-10): 0 Medication Infusion Stopped, Catheter Removal Planned: No New Bolus Given or Change in Infusion Made: No Daily Management Comments: Pt. comfortable and has been out of bed which has been encouraged. Discussed plan to wait another day or so and then do a pain trial with epidural off. All questions answered. Completed By: Colton Ferrera
[2024-05-14] MEDS: Lactated Ringers 1,000 ML 50 ML IV (20:29)
[2024-05-15] VITALS (62 sets, daily range): BP systolic 156–171; BP diastolic 99–112; PULSE 80–98; RESP 12–23; TEMP 36.6–37.1; O2SAT 91–93
[2024-05-15] MEDS: FentaNYL/ROPIvacaine 2 mcg/ml and 0.1% 200 ML CADD Cassette EP ×2 (02:54→17:54)
[2024-05-15] MEDS: PIPERACILLIN/TAZO 3.375 GM in Normal Saline 50 ML IVPB ×4 (03:20→20:42)
[2024-05-15] MEDS: Normal Saline Flush 10 ML SYR IVP ×3 (03:30→21:03)
[2024-05-15] MEDS: Tiotropium Bromide-Respimat 10 PUFF INH 2 PUFF IH (08:20)
[2024-05-15] MEDS: Heparin 5,000 UNITS/ML VIAL 5000 UNITS SC ×2 (08:59→20:45)
--- NOTE | 2024-05-15 08:59 | PGE_ITS ---
Date of Service Date of service: 05/15/24 Time of Service: 09:00 Assessment and Plan Assessment and plan (1) Internal hernia: Status: Acute Assessment and plan: 74-year-old man postop day 3 from exploratory laparotomy with bowel resection. He is hemodynamically stable. He has an ileus which is not unexpected at this point. Overall plan: Await better bowel function and resolution of distention - n.p.o. with sips/ice only. DVT prophylaxis Analgesia as needed Subjective Subjective Interval history since last seen: Patient is feeling pretty well overall. His pain is under control. He denies having any appetite. He feels like his abdomen is very bloated. Exam Narrative Exam Narrative: General: Nontoxic, comfortable and interactive Neuro: Alert and oriented x 3 Psych: Good mood and affect, good insight and understanding into his condition Chest: Nonlabored breathing Heart: Regular Abdomen: Soft, very distended, moderate tenderness around incisions. Left lower quadrant colostomy is pink but not functioning. There is no air and there is no liquid in the bag. Objective Last Vital Signs Temp 98.8 F 05/15/24 02:51 Pulse 85 05/15/24 02:51 Resp 19 05/15/24 04:00 BP 156/99 H 05/15/24 02:51 Pulse Ox 93 05/15/24 08:23 Time Spent with Patient Time Spent with Patient: 25-34 minutes Time was spent: preparing to see the patient(eg.review tests), obtaining and/or reviewing separately otained hiistory, ordering medications,tests, procedures, referring, communicating with other health live in caregiver, indepentently interpreting results, counseling the patient, care coordination and other
[2024-05-15] MEDS: Protein Nutritional Supplement 16 GM 1 OUNCE PACKET PO ×2 (09:01→20:44)
[2024-05-15] MEDS: Lisinopril 5 MG TAB PO (09:02)
--- NOTE | 2024-05-15 10:45 | ANES.NEURP_ITS ---
Epidural/Spinal Daily Note Date Performed: 05/15/24 Assessment Time: 10:39 Patient Location: Intensive Care Unit Catheter Type in Place: Epidural Catheter Dressing Assessment: Dressing intact with good adherence Catheter Assessment: Catheter Labeled and Intact and Functioning Previous Catheter Depth Noted (cm): 12 Current Catheter Depth (cm): 12 (Not easily visualized with dressing. ) Current Medication Infusion: Ropivacaine 0.1% with Fentanyl 2mcg/ml Current Maintenance Infusion Rate (ml/hour): 10 Current PCEA Bolus Dose (ml): 5 Current Pain Score (0-10): 7 Medication Infusion Stopped, Catheter Removal Planned: No Sensory / Motor Block Comments: Fairly full CMS. Strong leg lifts. Patient reports he does feel like its working, just more as a background. Did not want removal today. Is currently requesting PRN Morphine. New Bolus Given or Change in Infusion Made: No Daily Management Comments: Plan on re-evaluating tomorrow. Of note: belly more distended, printed circuit boards contact printer General Surgeon rounded and did make patient NPO again. Completed By: Yonatan Lutz
[2024-05-15] MEDS: MORPHine 2 MG/ML SYR IVP ×4 (10:49→22:38)
[2024-05-15] MEDS: Lactated Ringers 1,000 ML 100 ML IV (16:35)
[2024-05-16] VITALS (16 sets, daily range): BP systolic 138–181; BP diastolic 90–120; PULSE 84–102; RESP 14–20; TEMP 36.1–37.1; O2SAT 91–95
[2024-05-16] MEDS: PIPERACILLIN/TAZO 3.375 GM in Normal Saline 50 ML IVPB ×3 (01:34→14:03)
[2024-05-16] MEDS: MORPHine 2 MG/ML SYR IVP ×7 (05:13→15:24)
[2024-05-16] MEDS: Lactated Ringers 1,000 ML 100 ML IV (05:48)
[2024-05-16] MEDS: Heparin 5,000 UNITS/ML VIAL 5000 UNITS SC (06:23)
[2024-05-16] MEDS: Normal Saline Flush 10 ML SYR IVP ×6 (07:49→15:27)
[2024-05-16] MEDS: Lisinopril 5 MG TAB PO (07:54)
--- NOTE | 2024-05-16 08:03 | PGE_ITS ---
Date of Service Date of service: 05/16/24 Time of Service: 09:00 Assessment and Plan Assessment and plan (1) Internal hernia: Status: Acute Assessment and plan: 74-year-old man is postop day 4 from exploratory laparotomy with small bowel resection. Reportedly has a distal sigmoid large bowel obstruction related to diverticular disease. He has a diverting loop colostomy proximal to this. At this point this just remains a prolonged postoperative ileus which is completely expected. His ostomy is patent and not obstructed. He is not vomiting but is definitely not passing any flatus through the intestinal tract yet. Continued opioid use is probably contributing some part. I think if we do not see any definitive bowel function tomorrow we can do a contrast study to be sure we are not missing anything, but I do not think we are at this point. His lab work is all normal and his vital signs are normal and he does not have a toxic appearance. Overall plan: # Sit tight, sips only and await better bowel function and resolution of distention. Maintenance IV fluid until bowel function. # Attempt non-narcotic analgesia is much as possible (patient very much wants morphine as needed) # Remove epidural (anesthesia) # Remove Velarde catheter tonight (void check in the morning) # Reassess tomorrow for possible need of imaging, but I am optimistic we will not need it Subjective Subjective Interval history since last seen: No overnight events or significant clinical changes. At the bedside the patient endorses a little bit better. Pain control still seems to be an issue during the nighttime only but at the time of bedside visit his pain is adequately controlled. No fevers. Still no ostomy output. No nausea or vomiting. Objective Last Vital Signs Temp 97.0 F L 05/16/24 07:49 Pulse 91 H 05/16/24 07:30 Resp 16 05/16/24 07:30 BP 155/107 H 05/16/24 07:30 Pulse Ox 93 05/16/24 07:30 Objective Narrative Objective Narrative: General: Nontoxic, comfortable and interactive. He does not appear to be in distress or significant pain. Neuro: Alert and oriented x 3 Psych: Good mood and affect, good insight and understanding Chest: Nonlabored breathing Heart: Regular Abdomen: Soft, still quite distended and not any less distended than yesterday, mild tenderness around incision only. No peritoneal signs. The incision itself looks perfect. No erythema. Chassell are intact. The colostomy is pink but there is absolutely no output. There is no gas. Just sweat. It looks very healthy. I did digitize it at the bedside and it is patent through the fascia and not too tight. Formed stool is palpable beneath. Time Spent with Patient Time Spent with Patient: <25 minutes Time was spent: preparing to see the patient(eg.review tests), obtaining and/or reviewing separately otained hiistory, ordering medications,tests, procedures, referring, communicating with other health managed care specialist, indepentently interpreting results, counseling the patient, care coordination and other
[2024-05-16] MEDS: Tiotropium Bromide-Respimat 10 PUFF INH 2 PUFF IH (08:23)
[2024-05-16 08:29] LABS: Abs Immature Grans 0.13 10^3/uL (0.0-0.06); Absolute Basophil Count 0.05 10^3/uL (0.0-0.2); Absolute Eosinophil Count 0.18 10^3/uL (0.0-0.7); Absolute Lymphocyte Count 0.82 10^3/uL (1.2-3.4); Absolute Monocyte Count 0.67 10^3/uL (0.1-0.8); Absolute Neutrophil Count 8.71 10^3/uL (1.2-6.7); Basophils % 0.5 %; Eosinophils % 1.7 %; HCT 46.5 % (40.0-50.0); HGB 15.7 g/dL (13.5-17.5); Immature Grans % 1.2 %; Lymphocytes % 7.8 %; MCH 32.1 pg (27.0-33.0); MCHC 33.8 % (32.0-36.0); MCV 95 fL (80-95); MPV 8.8 fL (8.0-11.0); Monocytes % 6.3 %; Neutrophils % 82.5 %; Platelet Count 379 10^3/uL (130-400); RBC 4.89 10^6/uL (4.36-5.78); RDW 13.2 % (11.8-14.1); RDW-SD 46.8 fL; WBC 10.56 10^3/uL (4.4-10.8)
[2024-05-16 08:39] LABS: Anion Gap 5.7 mmol/L (3-11); BUN 18 mg/dL (7-18); CO2 31.3 mmol/L (21.0-32.0); CREATININE 0.8 mg/dL (0.70-1.30); Calcium 8.7 mg/dL (8.5-10.1); Chloride 98 mmol/L (98-107); Estimated GFR 94.03 (mL/min/1.73m2); Glucose 93 mg/dL (74-106); Sodium 135 mmol/L (136-145)
--- NOTE | 2024-05-16 10:21 | W.ANESEPD ---
Epidural/Spinal Daily Note Date Performed: 05/16/24 Assessment Time: 10:15 Patient Location: Med/Surg Catheter Type in Place: Epidural Catheter Dressing Assessment: Dressing intact with good adherence Catheter Assessment: Catheter Labeled, Intact and Functioning and Planned Removal, team aware, Anticoagulant Therapy Addressed Previous Catheter Depth Noted (cm): 12 Current Catheter Depth (cm): 12 Current Medication Infusion: Ropivacaine 0.1% with Fentanyl 2mcg/ml Current Maintenance Infusion Rate (ml/hour): 10 Current PCEA Bolus Dose (ml): 5 Current Pain Score (0-10): 7 Medication Infusion Stopped, Catheter Removal Planned: Yes Sensory / Motor Block Comments: Full CMS at this time. New Bolus Given or Change in Infusion Made: Yes Standard Monitors Applied: See EMR for corresponding vital signs Epidural Provider Bolus (Indicate Dose Given): None Given Additives (Indicate Dose Given ): None Infusion Medication: No Infusion / No Changes Made (Infusion stopped for planned removal) Daily Management Comments: Patient infusion stopped after discussion with patient for planned removal as we are POD 4 and patient expressing hes not certain epidural is being effective for him. Transitioning to IV med primarily. Discussed adding scheduled tylenol instead of PRN with Dr. Franco. He will add. I will recheck patient after my next surgery and see how he is doing with this pause in therapy and evaluate for removal. Completed By: Yonatan Lutz
[2024-05-16] MEDS: ACETAMINOPHEN 1,000 MG/100 ML BTL 400 MG IVPB ×3 (11:08→22:00)
[2024-05-16] MEDS: POTASSIUM CHLORIDE/D5-0.45NACL 1,000 ML 100 MEQ IV (12:49)
[2024-05-16] MEDS: Protein Nutritional Supplement 16 GM 1 OUNCE PACKET PO (14:23)
--- NOTE | 2024-05-16 18:08 | NUR.NOTE ---
Dr. Franco made aware of pt vomitting >600 ml in the last hour. this proposal manager writer inquired about a repeat CT scan in the setting of s/p colostomy placement and ilieus management. Dr. Franco declined CT and gave a verbal order for an NG tube to be placed to decompress the stomach. Pt declined NG tube placement at this time.
--- NOTE | 2024-05-16 19:58 | NUR.NOTE ---
Nursing Note: 1950 patient has been feeling some nausea since I came on shift. He has refused Zofran as offered. He is claiming a current 5-6 pain level and is refusing medication at this time. He is concerned that anything is going to cause him more emesis.
--- NOTE | 2024-05-17 | DI.CT_ITS ---
Exam(s) CT ABDOMEN PELVIS W EXAM: CT ABDOMEN PELVIS W CLINICAL HISTORY: post -operative abscess. TECHNIQUE: Imaging Protocol: Axial computed tomography images with coronal and sagittal reformatted images were created and reviewed CONTRAST MATERIAL: Intravenous: Omnipaque-350 100cc Oral: None COMPARISON: CT CT ABDOMEN PELVIS W from 05/10/2024 FINDINGS: VISUALIZED LUNG BASES: There are now moderate size bilateral pleural effusions, left larger than righ t, both new since prior CT scan of 05/10/2024. Some atelectasis in the lung bases is also noted. He art size is normal. There is no pericardial effusion. ABDOMEN: GI: There is evidence of recent midline laparotomy. Small amount of free air is noted which may be p ostsurgical. The stomach, duodenum, and small bowel loops remains significantly distended small ingrid l loops measuring up to 5 cm diameter and fluid-filled with transition point in the right lower quadr ant. The colon being relatively collapsed. And there is now a left anterior pelvic wall colostomy w ith drain at this level noted. Extensive sigmoid diverticulosis noted There is some perihepatic ascites evident. Also mild free fluid in the dependent aspect of the pelvi s. No truly discernible abscess evident. LIVER: There are no focal hepatic lesions evident. No dilated intrahepatic ducts. GALLBLADDER/BILIARY: No obvious gallbladder pathology. CBD is not dilated. PANCREAS: No evidence of pancreatic mass. Pancreatic duct diameter is upper normal. SPLEEN: Spleen is not enlarged. No obvious intrasplenic lesions. Splenic and portal veins are paten t. ADRENALS: There are no significant adrenal masses. KIDNEYS:Benign cyst in left kidney again noted. Does not require further workup. No solid renal mas ses. No calculi nor hydronephrosis.. ABDOMINAL AORTA: Calcified but not enlarged. Common iliac arteries also calcified but not enlarged. LYMPH NODES:There is no retroperitoneal nor paraaortic adenopathy. ABDOMINAL WALL: Midline laparotomy clips. Left-sided colostomy. No hernia seen. Anasarca evident PELVIS: GI: No evidence of appendicitis.Extensive sigmoid diverticulosis. LYMPH NODES: There is no intrapelvic nor inguinal adenopathy. REPRODUCTIVE: Obscured by beam hardening artifact from both hip prostheses. Velarde catheter noted. URINARY BLADDER: Velarde catheter. Bladder not distended. OSSEOUS: Bilateral hip prostheses. Chronic degenerative disc disease lower lumbar spine. No signifi cant osseous lesions. IMPRESSION: 1. Compared to CT scan of 05/10/2024 there has been interval laparotomy and creation of a left-sided colostomy. 2. There is small bowel obstruction pattern with small bowel loops dilated to 5 [address] distended stom ach and duodenum. Small-moderate amount of ascites, predominantly perihepatic and in the lower pelvi s. There is a small amount of free air which is possibly related to the recent laparotomy. There is no evidence of obvious formed abscess. 3. Velarde catheter in place. Drainage device evident at the level of the left anterior abdominal wall colostomy. 4. Other findings as above. RADIATION DOSE DELIVERED: 311.56mGy.cm Total DLP DATA REPOSITORY: All CT scans at this facility are submitted to the National Radiology Data Registry (NRDR) Dose Index Registry (DIR) with the [employer] (ACR). RADIATION OPTIMIZATION: All CT scans at this facility use at least one of these dose optimization te chniques: automated exposure control; mA and/or kV adjustment per patient size (includes targeted exa ms where dose is matched to clinical indication); or iterative reconstruction.
--- NOTE | 2024-05-17 04:40 | NUR.NOTE ---
Nursing Note: 0400 Patient had additional emesis of 200 mL at this time. When I hung new bag of maintenance fluids the patient asked about discontinuing fluids. I suggested that if that was his desire that we would do so temporarily and I would check with him on how he is feeling in a couple of hours. I asked about his scheduled IV Tylenol and he said he did not want that either. He had previously stated that it made him feel bloated. Patient stated 4-5 out of 10 pain score. Patient is now resting in his room. Patient urine is ronny colored and dark. Patient eastman remains patent and is draining. Patient colostomy bag had significant air and little fluid in it. I removed the air from his colostomy bag at this time. Surgeon contacted by charge nurse, told that the patient was refusing. Surgeon stated that patient can refuse. Surgeon informed of the situation.
[2024-05-17 06:39] LABS: Abs Immature Grans 0.17 10^3/uL (0.0-0.06); Absolute Eosinophil Count 0.15 10^3/uL (0.0-0.7); Absolute Monocyte Count 0.94 10^3/uL (0.1-0.8); Absolute Neutrophil Count 11.23 10^3/uL (1.2-6.7); Basophils % 0.4 %; Eosinophils % 1.1 %; HCT 50.1 % (40.0-50.0); Immature Grans % 1.3 %; Lymphocytes % 6.6 %; MCH 31.6 pg (27.0-33.0); MCHC 33.9 % (32.0-36.0); MCV 93 fL (80-95); MPV 8.9 fL (8.0-11.0); Neutrophils % 83.6 %; Platelet Count 473 10^3/uL (130-400); RBC 5.38 10^6/uL (4.36-5.78); RDW 13.2 % (11.8-14.1); RDW-SD 45.1 fL; WBC 13.43 10^3/uL (4.4-10.8)
[2024-05-17 06:40] LABS: Absolute Basophil Count 0.05 10^3/uL (0.0-0.2); Absolute Lymphocyte Count 0.89 10^3/uL (1.2-3.4)
[2024-05-17 06:59] LABS: Anion Gap 4.3 mmol/L (3-11); BUN 19 mg/dL (7-18); CO2 31.7 mmol/L (21.0-32.0); CREATININE 0.9 mg/dL (0.70-1.30); Chloride 99 mmol/L (98-107); Estimated GFR 90.74 (mL/min/1.73m2); Glucose 135 mg/dL (74-106); Potassium 3.4 mmol/L (3.5-5.1); Sodium 135 mmol/L (136-145)
[2024-05-17] MEDS: Breeza Beverage 473 ML BTL PO (07:47)
[2024-05-17 07:53] VITALS: BP 135/99; PULSE 89; RESP 17; TEMP 36.2; O2SAT 92
--- NOTE | 2024-05-17 08:38 | PGE_ITS ---
Date of Service Date of service: 05/17/24 Time of Service: 08:38 Assessment and Plan Assessment and plan (1) Internal hernia: Status: Acute Assessment and plan: His distention and leukocytosis this morning are quite concerning, as this is nausea and vomiting. I explained my concerns regarding postoperative abscess, or other pathology that is preventing forward flow into the colostomy. At this point, I think a CAT scan to interrogate peritoneum for any signs of abscess is probably the safest option. I will arrange for that this morning, and reassess after that date is available. Subjective Subjective Interval history since last seen: Ha is a little bit despondent this morning, as he had increasing abdominal distention over the weekend, and a few episodes of vomiting overnight. Understandably, he is quite frustrated about this lack of progress. Exam GI Other: There is a little bit of gas, and more liquid stool in the colostomy this morning. He is still quite distended. Incision is clean, and I do not see an active signs of infection. Objective Last Vital Signs Temp 97.2 F L 05/17/24 07:53 Pulse 89 05/17/24 07:53 Resp 17 05/17/24 07:53 BP 135/99 H 05/17/24 07:53 Pulse Ox 92 05/17/24 07:53 Laboratory Results - last 24 hr 05/16/24 05/17/24 08:23 06:05 WBC 13.43 H RBC 5.38 Hgb 17.0 Hct 50.1 H MCV 93 MCH 31.6 MCHC 33.9 RDW 13.2 Plt Count 473 H MPV 8.9 Immature Gran % 1.3 Neutrophils % 83.6 Lymphocytes % 6.6 Monocytes % 7.0 Eosinophils % 1.1 Basophils % 0.4 Nucleated RBC % 0.0 Absolute Neutrophils 11.23 H Absolute Lymphocytes 0.89 L Absolute Monocytes 0.94 H Absolute Eosinophils 0.15 Absolute Basophils 0.05 Sodium 135 L 135 L Potassium 4.0 3.4 L Chloride 98 99 Carbon Dioxide 31.3 31.7 Anion Gap 5.7 4.3 BUN 18 19 H Creatinine 0.8 0.9 Est GFR (CKD-EPI 2020) 94.03 90.74 Glucose 93 135 H Calcium 8.7 9.0 Time Spent with Patient Time Spent with Patient: 25-34 minutes Time was spent: preparing to see the patient(eg.review tests), ordering medications,tests, procedures, referring, communicating with other health healthcare business analyst, indepentently interpreting results and counseling the patient
[2024-05-17] MEDS: Normal Saline - Diluent 50 ML VIAL IJ (08:44)
[2024-05-17] MEDS: Omnipaque 350 MG/ML 100 ML BTL IJ (08:44)
[2024-05-17] MEDS: Tiotropium Bromide-Respimat 10 PUFF INH 2 PUFF IH (08:50)
--- NOTE | 2024-05-17 09:31 | CMPROGNOTE_ITS ---
Date of service: 05/17/24 Time of Service: 09:31 Care Management Progress Note Progress Note Text Progress Note Text: Ha was laying in bed when CM met with him. He is awake and engages in conversation. He c/o nausea, vomiting and not feeling well. Per RN, ostomy education will be started today, now that he has some output in his colostomy. Ha reports that he hasn't been out of bed much by choice because he feels so drained. CM notified Surgical, PT eval is being ordered for tomorrow. Discharge Potential Discharge Needs: PCP F/U Appt and Surgical F/U Appt Anticipated Barriers to Discharge: Medical Status Patient/Family Education Needs: Review discharge instructions, discuss Ask Me Three Transportation: Private vehicle Plan: Anticipate, Ha will return home with New [facility] RN services (followed by Surgical), No PCP; T-doc F/U to be offered, Ostomy supplies will be ordered through [employer], Pt will transport home via private vehicle. CM is following. SDOH(Care Management) Screening Will the Patient Participate in the Screening?: Yes Do you worry about having a steady place to live?: no In the past 12 months, have you had to go without electric, gas, oil or water in your home?: no Have you or anyone in your house had to go without enough food to eat?: no Has lack of transportation kept you from medical appointments or from doing things needed for daily living?: no Has anyone in your support network made you feel unsafe for any reason?: no Anticipated HH Services Anticipated HH Services at Discharge [facility] Needed, PT (Awaiting PT recommendation) and RN Anticipated Date of Discharge: 05/19/24. Following Provider: Surgical will follow HH orders, no PCP.
[2024-05-17] MEDS: Lisinopril 5 MG TAB PO (09:49)
[2024-05-17] MEDS: Normal Saline Flush 10 ML SYR IVP ×2 (09:57→20:54)
[2024-05-17] MEDS: POTASSIUM CHLORIDE/D5-0.45NACL 1,000 ML 100 MEQ IV (13:29)
[2024-05-17 14:53] VITALS: BP 142/97; PULSE 104; RESP 18; TEMP 36.9; O2SAT 93
[2024-05-17 20:50] VITALS: BP 140/92; PULSE 108; RESP 18; TEMP 36.6
[2024-05-17] MEDS: Heparin 5,000 UNITS/ML VIAL 5000 UNITS SC (20:52)
[2024-05-18] MEDS: POTASSIUM CHLORIDE/D5-0.45NACL 1,000 ML 100 MEQ IV (01:28)
[2024-05-18 01:31] VITALS: BP 134/88; PULSE 99; RESP 18; TEMP 36.7; O2SAT 98
[2024-05-18 06:37] LABS: HCT 44.6 % (40.0-50.0); HGB 15.5 g/dL (13.5-17.5); MCH 31.8 pg (27.0-33.0); MCHC 34.8 % (32.0-36.0); MCV 92 fL (80-95); MPV 8.9 fL (8.0-11.0); Platelet Count 436 10^3/uL (130-400); RBC 4.87 10^6/uL (4.36-5.78); RDW 13.2 % (11.8-14.1); RDW-SD 44.7 fL; WBC 11.96 10^3/uL (4.4-10.8)
[2024-05-18 06:49] LABS: Anion Gap 6.9 mmol/L (3-11); BUN 16 mg/dL (7-18); CO2 30.1 mmol/L (21.0-32.0); CREATININE 0.8 mg/dL (0.70-1.30); Calcium 8.1 mg/dL (8.5-10.1); Chloride 101 mmol/L (98-107); Estimated GFR 94.03 (mL/min/1.73m2); Glucose 145 mg/dL (74-106); Potassium 3.8 mmol/L (3.5-5.1); Sodium 138 mmol/L (136-145)
[2024-05-18 07:26] VITALS: BP 140/85; PULSE 98; RESP 20; TEMP 37.1; O2SAT 93
[2024-05-18] MEDS: Tiotropium Bromide-Respimat 10 PUFF INH 2 PUFF IH (07:54)
[2024-05-18] MEDS: Lisinopril 5 MG TAB PO (08:09)
[2024-05-18] MEDS: Normal Saline Flush 10 ML SYR IVP ×2 (08:10→22:24)
[2024-05-18] MEDS: Heparin 5,000 UNITS/ML VIAL 5000 UNITS SC ×2 (08:10→20:13)
--- NOTE | 2024-05-18 10:21 | PDOC.CMPRO ---
Date of service: 05/18/24 Time of Service: 10:21 Care Management Progress Note Progress Note Text Progress Note Text: Ha was awake and lying in bed when CM met with him. Per pt, he is scheduled for a NPW with Dr. Razo on 06/08 at 1:15. CM contacted Dr. Razo's office and Phyllis Watkins is able to see him earlier for a Hospital follow up on 05/26/24 at 1100 and will follow his HH orders. New [facility] RN will be ordered for Ostomy support. New [facility] PT is recommended. Molly from Surgical reported to that she sent orders for Ostomy supplies to [facility]. Discharge Potential Discharge Needs: PT Evaluation Anticipated Barriers to Discharge: Medical Status Patient/Family Education Needs: Review discharge instructions, discuss Ask Me Three Transportation: Private vehicle Plan: Anticipate, Ha will return home with New [facility] RN/PT services. Ostomy supplies are ordered through [facility], Hospital follow up appointment will be with Phyllis Watkins at [facility] on 05/26/24, as scheduled. Phyllis Watkins at [facility] is able to follow [facility] orders, since Ha has a NPW scheduled with Dr. Razo on 06/08. Pt will transport home via private vehicle. CM is following. SDOH(Care Management) Screening Will the Patient Participate in the Screening?: Yes Do you worry about having a steady place to live?: no In the past 12 months, have you had to go without electric, gas, oil or water in your home?: no Have you or anyone in your house had to go without enough food to eat?: no Has lack of transportation kept you from medical appointments or from doing things needed for daily living?: no Has anyone in your support network made you feel unsafe for any reason?: no Anticipated HH Services Anticipated HH Services at Discharge [facility] Needed, PT and RN (Ostomy support) Anticipated Date of Discharge: 05/20/24. Following Provider: Phyllis Watkins.
--- NOTE | 2024-05-18 14:15 | PT.INIE ---
PT Notes Visit Reasons: SBO Inpatient Physical Therapy Evaluation Date: 05/18/2024 Referring Doctor: Fernando Razo PT Orders: PT CONSULT: assess discharge Precautions:eastman catheter, ostomy to left abdomen, IV line Patient Profile/Admitting Diagnosis: Pi is a 74 yo male presented to the ED on 05/10/24 with 3 day progressive increase in Abdominal pain, dark urine, Nausea and vomitting. CT of abdomen revealed SBO. Pt was admitted and NG tube was placed awaiting Surgical consult. Pt to OR on 05/12/24 for Exploratory Lap resulting in diverting sigmoid loop ostomy. Post op complicated by decreased output, leukocytosis and N/V. Repeat CT scan on 05/17 (-) abscess, (+) Ascites and free air s/p exp-lap. Pt switched to PO intake and PT evaluation ordered. PMHX: Weight loss, unintentional (Acute) BPH (benign prostatic hyperplasia) (Chronic) COPD (chronic obstructive pulmonary disease) (Chronic) Former smoker (Acute) HTN (hypertension) (Chronic) DJD (degenerative joint disease), lumbar (Acute) Atherosclerosis of aorta (Acute) Diverticula of colon (Acute) Small bowel obstruction (Acute) Surgical History (Updated 05/10/24 @ 15:44 by Liza Ac DO) S/P bilateral hip replacements Social History/Home Situation: lives with his in 2 story home with 4 steps to enter and a flight of stairs to his bedroom on the send floor. He reports he has access to a bedroom on the 1st floor which he thinks he will use when he goes home. He reports being very active prior to this hospitalization. He is independent with ADLs, ambulates without device, drives car and boat, walks his dog. Current Functional Limitations: Impaired transfers , bed mobility , ambulation requiring a device for stability, inability to perfom stairs at prior level of independence Equipment Owned/DME: crutches Subjective: Pt reports today was the first day he was able to have solid food. He states he has been in bed for almost a week. He reports he did sit up a few times but feels SOB and fatigues quickly Objective: General Observation: semireclined in bed with eastman to bedside drainage and ostomy in place L abdominal wall, motivated to participate Mental Status: A+Ox4 Pain: Abdominal 12/30 Vital Signs: 140/85 HR 96 ROM: Right Upper Extremity: WNL Left Upper Extremity: WNL Right Lower Extremity: WNL Left Lower Extremity:WNL Strength: Imapired abdominal strength 2+/5 Right Upper Extremity: 4/5 Left Upper Extremity: 4/5 Right Lower Extremity: 3+/5 Left Lower Extremity: 3+/5 Sensation: intact Bed Mobility/Transfers: supine to sit min A for trunk sit to supine min A for LEs sit to from stand CGA and cues for hands bed to from chair with FWW CGA Gait:CGA FWW 60 feet including turns reciprocal pattern, NBOS Balance: Static Sitting:Normal Dynamic Sitting: Good Static Standing: Fair + with FWW Dynamic Standing:Fair with FWW Special Tests: Mobility Limitations Standardized Measure [facility] AM-PAC 6 clicks Basic Mobility Inpatient Short Form: Raw Score: 15 CMS Score: 57.70% disability Informed Consent/Education: Patient instructed in purpose of PT consult and plan of care. Assessment: Patient is a 74year old male referred to physical therapy services with the diagnosis of SBO. Patient presents with clinical signs and symptoms consistent with admitting diagnosis, as demonstrated by the following impairment level findings: 1. Decreased strength 2. Decreased balance 3. Impaired functional activity tolerance 4. Impaired pacing breath control impairments are contributing to the following functional limitations: 1. AMPAC score. 2. Declining bed mobility skills 3. Declining transfer skills 4. Difficulty with ambulation without assistive device and physical assistance 5. Increased risk for falls 6. Difficulty managing steps alone safely 7. Increase completion time for mobility during ADL performance. Patient is assessed as a Moderate [id number] complexity based on the following: History: As above Examination: Functional limitations as above Presentation: Evolving Decision Making: Moderate Goals: Goals X1 week 1. Supine-Sit independent 2. Sit-Supine independent 3. Sit-Stand independent 4. Stand-Sit independent 5. Bed-Chair independent with device 6. Chair-Bed independent with device 7. Gait independent with least restrictive device greater than 200 feet 8. Stairs 3 steps with 1 rail supervision 9. Independent with home exercise program Plan of Care/Treatment Plan: 1-2x/day, 7 days/week x 1 week. Plan of care has been reviewed with the HEAD CAGER providing the service under Physical Therapy direction. Initiate Physical Therapy intervention for strengthening, bed mobility, transfers, gait, stairs, balance training, use of assistive device. DISCHARGE RECOMMENDATIONS: Home with services PT TREATMENT CODE/TIME: [phone] Please sign an return this page within 30 days if you agree with the above POC. Thank you! Physician Signature Date [facility]
[2024-05-18 15:28] VITALS: BP 126/7; PULSE 90; RESP 14; TEMP 37.4; O2SAT 92
--- NOTE | 2024-05-18 19:23 | W.PM.PROGNOT ---
Date of Service Date of service: 05/18/24 Time of Service: 11:30 Assessment and Plan Assessment and plan (1) Internal hernia: Status: Acute Assessment and plan: The decrease in the WBC and improved abdominal exam with a functioning colostomy is certainly reassuring. I will stop the supplemental IVF today. Once he is a little more mobile I will remove the catheter. Assuming the liquids go okay today, we can advance the diet a bit tomorrow and see how he tolerates it. Subjective Subjective Interval history since last seen: Odell looks great today. He tolerated liquids without any more episodes of nausea or vomiting. His pain is well controlled on tylenol. Ostomy made around 700 ml of stool yesterday. Exam GI Other: Abdomen is less distended. There is gas and stool in the colostomy bag. The incisions is clean and healing nicely. Objective Last Vital Signs Temp 99.3 F 05/18/24 15:28 Pulse 90 05/18/24 15:28 Resp 14 05/18/24 15:28 BP 126/7 L 05/18/24 15:28 Pulse Ox 92 05/18/24 15:28 Laboratory Results - last 24 hr 05/18/24 06:15 WBC 11.96 H RBC 4.87 Hgb 15.5 Hct 44.6 MCV 92 MCH 31.8 MCHC 34.8 RDW 13.2 Plt Count 436 H MPV 8.9 Sodium 138 Potassium 3.8 Chloride 101 Carbon Dioxide 30.1 Anion Gap 6.9 BUN 16 Creatinine 0.8 Est GFR (CKD-EPI 2020) 94.03 Glucose 145 H Calcium 8.1 L Time Spent with Patient Time Spent with Patient: 25-34 minutes Time was spent: preparing to see the patient(eg.review tests), ordering medications,tests, procedures, counseling the patient and care coordination
[2024-05-18 20:07] VITALS: BP 129/82; PULSE 96; RESP 16; TEMP 37.3; O2SAT 95
--- NOTE | 2024-05-18 20:27 | W.NUTRFU ---
Date of service: 05/18/24 Time of Service: 14:00 Nutrition Note NOTE: visited with Maxx, who is a 74yo male patient admitted withdiverticular stricture/SBO and underwent abdominal surgery 05/12. His diet has progressed to full liquids today and tolerated choices like cream of wheat and ice cream along with some clear liquids. Maxx has PMH which includes unintentional weight loss, COPD, HTN,DJD. Unintentional weight loss possible from labored breathing of COPD in addition to this recent sbo concern. Patient states unable to eat x10 days prior to admission. He reports 62.3kg as usual body weight. He is ordered for liquid protein concentrate TID - he explained he vomited for 3 days and hasn't been taking. I came with 8oz Donald ONS to trial with benefits of arganine, glutamin, HMB, zinc, vitamin C and other nutrients for wound healing. PT said he will sip and decide whether he wants to continue receiving. We discussed his weight loss and the outpatient support I can provide to review his specific nutrition needs and help with tips for helping rebound weight in a healthy manner. Nutrition dx:inadequate oral intake related to acute sbo development as evidenced in nutrition related history provided by patient during out interview. Kitchen staff is offering boost ONS at meals when obtaining his meal orders so he knows these can be utilized as desired. Estimated nutrition needs: 2100kcals (35kcals/kg) for slow weight gain. 90g protein (1.5g/kg) for wound healing. 2100mL fluid (1mL per required kcal) Will follow up with patient on ONS toleration/acceptance, and monitor weight, po advancement/intake. Pt inteterested in outpatient nutrition support and took my card to contact as well. Time Spent in Nutritional Counseling and Treatment: 15 minutes
[2024-05-18 23:21] VITALS: BP 130/82; PULSE 91; RESP 17; TEMP 36.8; O2SAT 94
[2024-05-19] VITALS (22 sets, daily range): BP systolic 105–131; BP diastolic 59–85; PULSE 78–96; RESP 14–28; TEMP 36.6–37.4; O2SAT 91–100; BMI 18.4
[2024-05-19 06:38] LABS: HCT 44.6 % (40.0-50.0); HGB 14.7 g/dL (13.5-17.5); MCH 31.5 pg (27.0-33.0); MCV 96 fL (80-95); MPV 8.8 fL (8.0-11.0); Platelet Count 462 10^3/uL (130-400); RBC 4.67 10^6/uL (4.36-5.78); RDW 13.4 % (11.8-14.1); RDW-SD 47.4 fL; WBC 11.31 10^3/uL (4.4-10.8)
--- NOTE | 2024-05-19 07:17 | PDOC.HHF2F_ITS ---
Home Health Referral Home Health Orders Clinical synopsis of why skilled professionals are needed: Ha underwent urgent laparotomy for an acute small bowel obstruction with complicated diverticulitis. This required a small bowel resection, diverting loop colostomy. Surgery left him quite deconditioned with challenges associated with ambulation, management of a new colostomy Medical diagnosis necessitation home health referral: Recent laparotomy wound, new colostomy Registered Nurse: Check all that apply Instruct on ostomy care: Ordered Assess for exacerbation of medical condition, instruct patient/caregivers on signs and symptoms to report for early detection: Ordered (New laparotomy incision) Assess wound for signs and symptoms of infection, instruct on wound care and/or provide skilled wound care consisting of: Assess midline wound, for any signs of infection that would require treatment Physical Therapist: Check all that apply Increase strength & endurance for safe mobility at home: Ordered (Ha was seen as an inpatient consultation to physical therapy who recommended home PT) Fall reduction therapy program for patient with history of frequent falls: Ordered Home safety evaluation and teaching/gait training including stair management (if applicable): Ordered Home Bound Status Assistance of another person (Describe assistance and medical necessity): Ha is experiencing challenges with independent transfers secondary to deconditioning from laparotomy Describe why leaving home would require a considerable and taxing effort: Requires frequent rest periods and Safety Concerns: describe (Challenges associated with management of a new colostomy) Encounter Date and Reason: I certify that a FTF encounter for this patient was performed on May 19, 2024 and that such encounter was related to the primary reason the patient requires home health services. The encounter was conducted in the following manner: * By me as the certifying physician, WEIGHT LOSS PHYSICIAN, PA or * By an inpatient physician, WEIGHT LOSS PHYSICIAN or PA during an inpatient stay who communicated findings to me, Certification And Authentication I certify that I composed the above information based on my clinical judgment relating to this patient's medical condition and, if applicable, clinical findings communicated to me by the NPP or inpatient physician who performed the FTF encounter. Name of Provider that will be monitoring home health services: Fernando Razo
--- NOTE | 2024-05-19 07:20 | W.PM.PROGNOT ---
Date of Service Date of service: 05/19/24 Time of Service: 07:21 Assessment and Plan Assessment and plan (1) Internal hernia: Status: Acute Assessment and plan: White blood cell count is only mildly elevated today, and seems to be trending downward. He has no other systemic signs of infection at this point. The stoma is working great, he has made progress in terms of some assisted ambulation. Will pull the Velarde out this morning, and if he is able to void, I would anticipate discharge home later this afternoon. Subjective Subjective Interval history since last seen: Ha looks great this morning, and is in much better spirits. He feels like he has made significant progress over the past 2 days, and is eager to be discharged home. Exam GI Other: His abdomen is soft, and only minimally distended. He is not very tender. His stoma looks great, and is producing stool and gas Objective Last Vital Signs Temp 98.2 F 05/18/24 23:21 Pulse 91 H 05/18/24 23:21 Resp 17 05/18/24 23:21 BP 130/82 05/18/24 23:21 Pulse Ox 94 05/18/24 23:21 Laboratory Results - last 24 hr 05/19/24 05:59 WBC 11.31 H RBC 4.67 Hgb 14.7 Hct 44.6 MCV 96 H D MCH 31.5 MCHC 33.0 RDW 13.4 Plt Count 462 H MPV 8.8 Time Spent with Patient Time Spent with Patient: 25-34 minutes Time was spent: preparing to see the patient(eg.review tests), indepentently interpreting results, counseling the patient and care coordination
--- NOTE | 2024-05-19 07:22 | DSE_ITS ---
Date of service: 05/20/24 Time of Service: 09:05 DS: Diagnosis Discharge Diagnosis (1) Internal hernia: Status: Acute Asessment and Plan: Outpatient office follow-up on June 21 at 2:30 PM Discharge Plan Disposition Patient Disposition: Home W/Home Health Services Condition: Improving Discharge Details Reason For Visit: SBO Admit Date/Time: 05/10/24 15:36 Admit Provider: Liza Ac Attending Provider: Liza Ac Primary Care Provider: Ha Razo [facility] Course Hospital Course: Odell presented to the hospital with acute onset of abdominal pain with distention. He has a complicated medical history that is most significant for severe diverticulitis, with stricture of the sigmoid colon. He underwent a trial of nonoperative management, but was unable to tolerate a Gastrografin challenge. He is brought to the operating room urgently for exploratory laparotomy. He was found to have an acute small bowel obstruction of the distal ileum associated with a narrowing of the pelvic inlet essentially creating an internal hernia that was secondary to severe and chronic diverticulitis. He required closure of an enterotomy and creation of a diverting loop colostomy. His postoperative course was complicated by an ileus, which was compounded by laparotomy dehiscence that required revision of the closure. By the morning of the , he looked excellent. Vital signs are reassuring, and his abdominal pain was well-controlled. He was discharged home with the assistance of home health, and a follow-up visit the next week. Home Meds and New Rx's Prescriptions: Continued lisinopril 5 mg tablet 5 mg PO DAILY Patient Comments: TAKE ONE TABLET BY MOUTH EVERY DAY Discharge Instructions Instructions: How to Care for Your Ostomy, Adult, Living with a colostomy Additional Instructions: Ha, it was really a pleasure meeting you in the hospital, I am sorry that it has been a rough few weeks for you. I am optimistic you are on the mend at this point. Like we talked about this morning, you are doing really well for all that you have been through. You have a dressing on the surgical incision with a white sponge on it called a christopher dressing. It is attached to a little electronic pump. As I mentioned, as long as the little green light is flashing on the pump, it is working just fine. If you notice that the flashing light changes colors, please let my office know as soon as you can. As I showed you, it is okay to bathe with that dressing in place. To do this, hold down the orange button on the pump until the light stops flashing. Then untwist the plastic connective tubing that connects the dressing part to the pump part. Shower or bathe as best you can, reconnect the twist connection, and hold down the orange button until the pump starts activating again. For the first few seconds, the pump will blink orange and green, but eventually it should settle out to just blinking green. Again, if you have any trouble with this at all, just let our office know. The colostomy device I placed today can be left in place for several days. Most of my patients end up changing their devices somewhere between every 3 to 7 days, based largely on their bathing habits, and how the appliance itself is holding up. Technically, there is no absolute role to how frequently the device needs to be changed. If you are feeling okay, and it is holding up, it would be very reasonable to leave it in place until we see each other in the office if you like. Alternatively, if the home health care nurses and you are comfortable, practicing changes a few times is probably also very helpful. The adhesive on the device is on top of the abdominal dressing adhesive, so it can simply be peeled away from that. If you have not received colostomy supplies at the house by Friday, please call the office at [phone] to let us know. You should be up and moving around a little bit more more each day. I think a good role is to be active enough to feel quite tired intermittently through the day, but not so much that you cannot recover with a little bit of rest or a simple nap. Keep the lifting less than 5 pounds (or maybe something like a gallon of milk) until we see each other in the office. Try to keep your diet easily digestible. I think a good guide would be something like a dysphagia level 4 diet. You can search this on the Internet for examples. Simply put its the following: Level 4 (pureed, extremely thick).?These foods: Can often be eaten with a spoon, but sometimes a fork Can't be drunk from a cup Don't need to be chewed Can be molded, such as gelatin Are not sticky or lumpy Fall off a spoon all together when tilted and still hold shape on a plate. For example, pudding. Can't be poured but move very slowly if the plate is tilted Some type of protein supplement like boost, Ensure, or any other similar product would be excellent in the weeks to come after surgery like you have had. I did put in a prescription for the oxycodone as we talked about, and supplementing that with Tylenol and ibuprofen are excellent options. It is fine to place heating pads or ice packs over the abdominal dressing if you find that comfortable. When I was visiting with you, I forgot to mention that the Gram stain of the surgical wound on Friday afternoon shows no signs of bacteria, so I do not think you need any more antibiotics at this point. I have gone ahead and taken the liberty of making a follow-up appointment in my office on the at 2:30 PM. If that is problematic, please let me know. Like we talked about as well, I recommend that you call Dr. Razo's office to see how they want to go about establishing new care. I think it would be great for you to get in there as soon as you can to meet people and start the ball rolling, but I also do not want to burden you too much during the early phases of your recovery. If you need anything, or have any questions at all that I did not address here, please call let me know. Referrals: Fernando Razo MD [ [facility] STAFF PHYSICIAN] - Activity:: Activity as Tolerated Equipment/Supplies:: Colostomy supplies Diet:: Level 4 dysphagia diet DS: Summary Time Spent with Patient providing and/or coordinating discharge services: Greater than 30 minutes Status at Discharge Functional status at discharge: uses cane/walker Overall status at discharge: patient is progressing back to baseline Mental Status: mental status grossly normal Speech and Movement: speech and movement normal Mood: congruent mood Affect: normal affect Quality:SDOH Health Related Social Needs: No Data to Display Exam GI Other: Abdomen is soft and nondistended. Christopher dressing is clean. Ostomy is pink and patent and healthy appearing. Psych Mental Status: mental status grossly normal Speech and Movement: speech and movement normal Mood: congruent mood Affect: normal affect DS: Data Vitals/I&O Vitals and I&O: Vital Signs Temperature 98.2 F 05/18/24 23:21 Temperature Source Tympanic 05/18/24 23:21 Pulse 91 H 05/18/24 23:21 Pulse Rhythm Regular 05/18/24 20:50 Pulse 95 H 05/15/24 09:03 Respiratory Rate 17 05/18/24 23:21 Respiratory Effort Normal 05/18/24 20:50 Respiratory Depth Normal 05/18/24 20:50 Respiratory Pattern Normal 05/18/24 20:50 Blood Pressure 130/82 05/18/24 23:21 Blood Pressure Mean 129 05/15/24 09:03 Blood Pressure Position Supine 05/14/24 20:51 Pulse Oximetry 94 05/18/24 23:21 Oxygen Delivery Method Room Air 05/18/24 23:21 Oxygen Flow Rate 0 05/18/24 23:21 Pain Level 4 05/18/24 15:28 Comment pT states pain is 'well controlled at this time 05/16/24 15:58 Comment on RA 05/14/24 03:59 Intake & Output 05/18/24 05/18/24 05/19/24 11:59 23:59 11:59 Intake Total 655 / 975 320 / 975 Output Total 750 / 1100 350 / 1100 250 / 250 Balance -95 / -125 -30 / -125 -250 / -250 Intake: IV 655 / 655 Oral 320 / 320 Output: Urine 200 / 350 150 / 350 250 / 250 Stool 550 / 750 200 / 750 Other: Urine Color Light Noreen Light Noreen Light Noreen Urine Appearance Clear Sediment Data Completed and Pending Labs on day of discharge: Labs from last 24 hours 05/19/24 05:59 WBC 11.31 H RBC 4.67 Hgb 14.7 Hct 44.6 MCV 96 H D MCH 31.5 MCHC 33.0 RDW 13.4 Plt Count 462 H MPV 8.8 Preliminary micro results at discharge 05/12/24 15:22 Surgical Culture - Preliminary Abdomen 05/12/24 15:22 Anaerobic Culture - Preliminary Abdomen Anaerobic gram negative redd Anaerobic gram positive cocci PFSH All Active Problems Internal hernia (Acute) Diverticular stricture (Acute) Weight loss, unintentional (Acute) BPH (benign prostatic hyperplasia) (Chronic) COPD (chronic obstructive pulmonary disease) (Chronic) Former smoker (Acute) HTN (hypertension) (Chronic) DJD (degenerative joint disease), lumbar (Acute) Atherosclerosis of aorta (Acute) Diverticula of colon (Acute) Surgical History Status post colostomy Status post exploratory laparotomy (~04/2024) S/P bilateral hip replacements Social History Smoking/Tobacco Use Status: Never Smoking risk assessment performed?: Yes Alcohol Intake: current Alcohol Intake frequency: holidays/special occasions only Drug use: Never Substance use type: does not use Housing: house Do you feel safe at home: Yes Do you feel safe in your relationship?: Yes Time Spent with Patient Time Spent with Patient: 45-69 minutes Time was spent: counseling the patient and care coordination
[2024-05-19] MEDS: Tiotropium Bromide-Respimat 10 PUFF INH 2 PUFF IH (07:25)
--- NOTE | 2024-05-19 07:35 | NUR.NOTE ---
Prachi Note: Current Order from Dr. Razo Says. Speciality Cath Do not remove with out order from . At about 1855 upon my arrival to [facility]. Clarissa RN stated fisher scallop MD Dr. Franco stated to remove eastman for pt at 2200. However, upon reviewing MD orders. No order to remove eastman catheter was in patients list of orders. Upon rounding for hand off The patient told myself and Annette ADAM, that Dr. Razo told the patient he will place an order to remove the patients eastman in the morning. Because of this statement, and Dr. Whelan' Active Eastman order with clear instruction. no further effort to remove pts eatsman was made. Nursing Note:
--- NOTE | 2024-05-19 08:44 | PDOC.CMDIS ---
Date of service: 05/19/24 Time of Service: 08:44 LACE Index Scoring Tool Questions: Length of Stay (in days): 7 - 13 Was the patient admitted via the E.D.?: Yes Comorbidities: Chronic Pulmonary Disease E.D. Visits: 1 Answers: Total Score: 11 Risk of Readmission: High Risk Care Management Discharge Plan Reason for Hospitalization: SBO, Colostomy Discharge Plan: Ha is discharged home with [facility] RN/PT services. Pt will follow up with community providers and his discharge plan of care as instructed. Hospital follow up with primary care is on 05/26/24, as scheduled. Patient/Family Education Needs: Review discharge instructions, limitations, medications and plan to follow up with community providers. Discuss ask me three. Services Needed at Discharge: Home Health Care Services ([facility] PT and RN (Ostomy support). Orders will be followed by Phyllis Watkins.) [facility] Related Social Needs: No Data to Display
[2024-05-19] MEDS: Lisinopril 5 MG TAB PO (09:09)
[2024-05-19] MEDS: Normal Saline Flush 10 ML SYR IVP ×3 (10:35→20:18)
--- NOTE | 2024-05-19 10:49 | W.PM.PROGNOT ---
Date of Service Date of service: 05/19/24 Time of Service: 10:49 Assessment and Plan Assessment and plan (1) Internal hernia: Status: Acute Assessment and plan: This is obviously another unfortunate setback for Ha. Although the skin is intact over top, and I think there is low likelihood of evisceration, all the clinical factors here seem to point to dehiscence. I think the safest option at this point is to go back to the operating room today, and reclose this portion of the fascia. Hopefully, will be a limited procedure, but obviously 1 to make sure that the remainder of the fascial closure is not compromised. Subjective Subjective Interval history since last seen: I was asked to come see Ha because of some discharge from the wound. He says he was sitting up in the bed, moving around a little bit when he felt a sharp pain around his umbilicus, and decompressed a fair amount of serosanguineous fluid through the incision. He was assisted back to bed, this felt fine since then Exam GI Other: There is serous discharge from the midportion of the wound, just on the infraumbilical side. Feels like maybe there is a little bit of fascial dehiscence on to this. Objective Last Vital Signs Temp 98.2 F 05/19/24 08:18 Pulse 89 05/19/24 08:18 Resp 18 05/19/24 08:18 BP 130/80 05/19/24 08:18 Pulse Ox 93 05/19/24 08:18 Laboratory Results - last 24 hr 05/19/24 05:59 WBC 11.31 H RBC 4.67 Hgb 14.7 Hct 44.6 MCV 96 H D MCH 31.5 MCHC 33.0 RDW 13.4 Plt Count 462 H MPV 8.8 Time Spent with Patient Time Spent with Patient: <25 minutes Time was spent: indepentently interpreting results and counseling the patient
--- NOTE | 2024-05-19 11:44 | PDOC.CMPRO ---
Date of service: 05/19/24 Time of Service: 11:44 Care Management Progress Note Progress Note Text Progress Note Text: Ha was awake and lying in bed when CM met with him. He shares with CM that he's going back to the OR today and expresses his discouragement with this setback. Per pt, he's been in the hospital for 10 days and is concerned with the costs of this admission. Ha has BC/BS MCR and is worried that he will end up with a large balance. Furthering the discussion; Ha shares with CM that he feels anything that could go wrong, has. Patient appears reluctant to elaborate any further, and CM discussed CM's role as a patient advocate and offered to outreach to Patient Experience. Respectfully, Ha shares that he doesn't want to discuss this any further and just wants to make it through today. During this interaction, CM provided patient with a [facility] Patient Assistance Application with an overview of Community Connection services and a Brochure. Pt wants to review info with his before a referral is made. CM will follow. Discharge Potential Discharge Needs: PCP F/U Appt and Surgical F/U Appt Anticipated Barriers to Discharge: Medical Status Patient/Family Education Needs: Review discharge instructions, discuss Ask Me Three Transportation: Private vehicle Plan: Going back to the OR today due to a suspected dehiscence and need for reclosure. Anticipate, Ha will return home with [facility] RN/PT services. Ostomy supplies are ordered through [facility] Hospital follow up appointment will be with Phyllis Watkins at [facility] on 05/26/24, as scheduled. Phyllis Watkins at [facility] is able to follow [facility] orders, since Ha has a NPW scheduled with Dr. Razo on 06/08. Pt will transport home via private vehicle. CM is following. SDOH(Care Management) Screening Will the Patient Participate in the Screening?: Yes Do you worry about having a steady place to live?: no In the past 12 months, have you had to go without electric, gas, oil or water in your home?: no Have you or anyone in your house had to go without enough food to eat?: no Has lack of transportation kept you from medical appointments or from doing things needed for daily living?: no Has anyone in your support network made you feel unsafe for any reason?: no Interventions Care Management Referrals: PEDRO LUIS (Offered Referral) Anticipated HH Services Anticipated HH Services at Discharge [facility] Needed, PT and RN Following Provider: Phyllis Watkins.
[2024-05-19] MEDS: MORPHine 2 MG/ML SYR IVP ×2 (13:09→21:45)
--- NOTE | 2024-05-19 16:09 | ANES.PREOP_ITS ---
General Info Date of Service Date Performed: 05/19/24 Height: 5 ft 11 in Weight: 60.1 kg Body Mass Index (BMI): 18.4 Surgical Procedure: Operation Date: 05/12/24 13:35 Proposed Procedure Side Surgeon p Exploratory Laparotomy, ? bowel resection Fernando Razo MD s ? Colostomy Fernando Razo MD Actual Procedure Side Surgeon p Exploratory Laparotomy w/Bowel Resection + Colostomy Creation Not Applicable Fernando Razo MD Pre-Op Diagnosis Post-Op Diagnosis SMALL BOWEL OBSTRUCTION SMALL BOWEL OBSTRUCTION Operation Date: 05/19/24 16:25 Proposed Procedure Side Surgeon p Re-Opening Laparotomy and Re-Closure of Fascia Fernando Razo MD Meds Allergies and Home Medications Allergies Allergy/AdvReac Type Severity Reaction Status Date / Time No Known Allergies Allergy Unverified 06/30/20 09:32 Home Medication ?Medication ?Instructions ?Recorded lisinopril 5 mg tablet 5 mg PO DAILY 05/11/24 Current Visit Medications: Current Medications Generic Name Dose Route Start Last Admin Trade Name Freq PRN Reason Stop Dose Admin Albuterol Sulfate 2.5 mg 05/10/24 21:55 Albuterol 2.5 Mg/3 Ml Inh Soln Vial UPD Q4H PRN PRN Fentanyl/Ropivacaine 200 ml 05/12/24 18:45 05/15/24 17:54 Fentanyl/Ropivacaine 2 Mcg/Ml And 0.1% 200 Ml Cadd Cassette EP 200 ml DIRECTED FLORY Administration Heparin Sodium (Porcine) 5,000 units 05/10/24 18:00 05/19/24 09:25 Heparin 5,000 Units/Ml Vial SC Not Given Q12H FLORY Acetaminophen 1,000 mg in 100 mls @ 400 mls/hr 05/16/24 10:00 05/19/24 09:26 Ofirmev IVPB Not Given Q6H [facility] IV Miscellaneous Supplies 1 each 05/10/24 15:45 Iv Access IV DIRECTED [facility] Ketorolac Tromethamine 15 mg 05/16/24 10:31 Ketorolac 15 Mg/Ml Vial IVP 05/21/24 10:30 Q8H PRN PRN Lisinopril 5 mg 05/15/24 08:30 05/19/24 09:09 Lisinopril 5 Mg Tab PO 5 mg DAILY FLORY Administration Metaxalone 800 mg 05/13/24 12:00 05/19/24 11:03 Metaxalone 800 Mg Tab PO Not Given QID FLORY Morphine Sulfate 2 mg 05/10/24 15:35 05/19/24 13:09 Morphine 2 Mg/Ml Syr IVP 2 mg Q1H PRN PRN Administration Multi-Ingredient Supplement 1 ounce 05/16/24 14:00 05/19/24 13:21 Protein Nutritional Supplement 16 Gm 1 Ounce Packet PO Not Given TID@1000,1400,2000 [facility] Ondansetron HCl 4 mg 05/10/24 15:35 Ondansetron 4 Mg/2 Ml Vial IVP Q4H PRN PRN Sodium Chloride 0 ml 05/10/24 20:00 05/19/24 10:35 Normal Saline Flush 10 Ml Syr IVP 10 ml BID FLORY Administration Sodium Chloride 0 ml 05/13/24 02:38 05/19/24 13:09 Normal Saline Flush 10 Ml Syr IVP 20 ml PRN PRN Administration Tiotropium [place] 2 puff 05/11/24 08:30 05/19/24 07:25 Tiotropium [place]-Respimat 10 Puff Inh IH 2 puff DAILY FLORY Administration PFSH Active Problems Active Problems: Problem Status Onset Code Internal hernia Acute K45.8 Diverticular stricture Acute K56.699 Weight loss, unintentional Acute R63.4 BPH (benign prostatic hyperplasia) Chronic N40.0 COPD (chronic obstructive pulmonary disease) Chronic J44.9 Former smoker Acute Z87.891 HTN (hypertension) Chronic I10 DJD (degenerative joint disease), lumbar Acute M47.816 Atherosclerosis of aorta Acute I70.0 Diverticula of colon Acute K57.30 Surgical History Surgical History Status post colostomy Status post exploratory laparotomy (~04/2024) S/P bilateral hip replacements Tobacco Smoking/Tobacco Use Status: Never Alcohol Alcohol Intake: current Alcohol intake frequency: holidays/special occasions only Substance Use Substance use: Never Substance use type: does not use Vital Signs and Lab Results Vital Signs Most Recent Vital Signs in EMR: Most Recent Vital Signs Temp Pulse Resp BP Pulse Ox 36.8 C 91 H 17 125/85 94 05/19/24 11:08 05/19/24 11:08 05/19/24 11:08 05/19/24 11:08 05/19/24 11:08 Lab Results 05/19/24 05:59 05/18/24 06:15 Blood Type / Crossmatch: 2 No Data to Display Complete Blood Count: 2 White Blood Count 11.31 10^3/uL (4.4-10.8) H 05/19/24 05:59 Red Blood Count 4.67 10^6/uL (4.36-5.78) 05/19/24 05:59 Hemoglobin 14.7 g/dL (13.5-17.5) 05/19/24 05:59 Hematocrit 44.6 % (40.0-50.0) 05/19/24 05:59 Platelet Count 462 10^3/uL (130-400) H 05/19/24 05:59 Complete Metabolic Panel: 2 Sodium 138 mmol/L (136-145) 05/18/24 06:15 Potassium 3.8 mmol/L (3.5-5.1) 05/18/24 06:15 Chloride 101 mmol/L (98-107) 05/18/24 06:15 Carbon Dioxide 30.1 mmol/L (21.0-32.0) 05/18/24 06:15 BUN 16 mg/dL (7-18) 05/18/24 06:15 Creatinine 0.8 mg/dL (0.70-1.30) 05/18/24 06:15 Est GFR (CKD-EPI 2020) 94.03 (mL/min/1.73m2) 05/18/24 06:15 Magnesium 1.9 mg/dL (1.8-2.4) 05/14/24 05:56 Calcium 8.1 mg/dL (8.5-10.1) L 05/18/24 06:15 Albumin 2.8 g/dL (3.4-5.0) L 05/10/24 11:45 Glucose 145 mg/dL (74-106) H 05/18/24 06:15 Liver Function Panel: 2 Alanine Aminotransferase (ALT/SGPT) 14 U/L (16-63) L 05/10/24 1 1:45 Aspartate Amino Transf (AST/SGOT) 12 U/L (15-37) L 05/10/24 11: 45 Coagulation Panel: 2 No Data to Display Cardiac Panel: 2 NT-Pro-B Natriuret Pep 850 pg/mL (<300) H 05/11/24 Arterial Blood Gas: 2 No Data to Display Venous Blood Gas: 2 No Data to Display Pancreas Panel: 2 No Data to Display Thyroid Panel: 2 No Data to Display Infectious Disease: 2 No Data to Display Blood Cultures: 2 No Data to Display Toxicology Panel: 2 No Data to Display Imaging and Studies Imaging and Studies Study information below may be from another EMR and interpreted by another provider. Please see original notes in EMR for more complete details. Echocardiogram Summary: 05/12/24: EF 50-55%, Mild to moderate MR. Anesthesia Assessment and Plan Anesthesia History Personal History: No History of Anesthesia Complications Family History: No Family History of Anesthesia Complications Exercise Tolerance Exercise Tolerance: Metabolic Equivalents>4 Pertinent Negatives Pertinent Negatives: No Major Cardiovascular Symptoms or Complaints and No Major Pulmonary Symptoms or Complaints Cardiac & Pulmonary Exam Cardiac Exam: Normal S1/S2 Heart Sounds Pulmonary Exam: Clear Bilateral Breath Sounds Implantable Cardiac Device Does patient have a Pacemaker or an ICD?: No Airway Exam Known Difficult Airway: No Mallampati Class: 1 Mouth Opening: Normal (> 3cm) Thyromental Distance: Greater than 3 cm Neck Range of Motion: Full ROM Neck Circumference: Normal Teeth Condition: Normal Dentition ASA Classification ASA Score: ASA 2 Emergency Case?: No NPO Status NPO Status: NPO Clears >2 hours, Solids >8 hours Anesthesia Plan Resuscitation Status: Full Code Anesthesia Technique: General Anesthesia Airway Planned: Endotracheal Tube Monitors Used: Standard Monitors Preoperative Comments:: Patient states that he is NOT a DNR/DNI
[2024-05-19] MEDS: Lactated Ringers 1,000 ML 30 ML IV (16:22)
[2024-05-19] MEDS: Bupivacaine LIPOSOME/PF 133 MG/10 ML VIAL IJ (17:04)
[2024-05-19] MEDS: Normal Saline 20 ML VIAL (17:06)
--- NOTE | 2024-05-19 17:26 | W.PM.OP ---
Date of service: 05/19/24 Time of Service: 17:26 Operative Note Operative Note DATE OF PROCEDURE: 05/12/24 PRE-OP DIAGNOSIS: Fascial dehiscence POST-OP DIAGNOSIS: same PROCEDURE: Reopening recent laparotomy incision, revision of fascial closure SURGEON: Fernando Razo ANESTHESIA TYPE: Local By Surgeon, General:No Airway and Epidural Refer to Anesthesia Record ESTIMATED BLOOD LOSS: 10 PATHOLOGY: none sent COMPLICATIONS: None Patient was transported to: PACU Patient's condition: stable Indications: Ha is a 74-year-old male who recently underwent laparotomy for an acute small bowel obstruction and complicated diverticulosis. His postoperative recovery was complicated by ileus with significant abdominal distention nausea and vomiting. That resolved. Unfortunately, earlier today, while sitting up, he felt a tearing sensation around his umbilicus and had drainage of ascitic fluid from the incision. Findings: Previous midline fascial closure suture pulled through left side periumbilical fascia. No obvious infected tissue fascia was reapproximated with interrupted 0 PDS sutures Procedure Description: Patient was brought down to the prep and hold area, and I reviewed the indications for surgery with him, and my plan to explore the incision, and address the source of the fascial dehiscence depending upon the reason for separation. I explained different scenarios. He consented to the procedure, we moved back to the OR. General endotracheal anesthesia was induced without any issues. Abdominal dressings were all removed. Colostomy dressing was removed, and gauze pads and Bioclusive dressings were used to control this. The anterior abdominal wall was then prepped with Betadine, and draped. I started by removing a few of the william just around the underside of the umbilicus. There was some straw-colored fluid in the subcutaneous space. Specimens were obtained for Gram stain and culture. There is no signs of purulence or any obvious infection. Upon close examination, it appeared that the previous fascial closure suture was intact, and the knot was preserved. A portion of the fascia on the left side of the incision just along the edge of the umbilicus and towards the inferior margin had pulled through. Integrity the fascia generally appeared preserved. I suspect that not enough fascial tissue was incorporated into this portion of the suture line. I did not see any signs of purulence here. Subcutaneous planes were all healthy, and there were no obvious signs of infection. This portion of the dehiscence was gently teased apart, and the underlying viscera were partially visualized. The underlying bowel was pink, healthy, and peristalsing. Although the view of the peritoneal cavity was limited, there were no signs of infection here. Given the scenario, I felt the safest and best option for the patient was another attempt at fascial approximation. In an effort to bring this together, with minimal ischemia along the fascia, I thought interrupted sutures were appropriate. Therefore, I used 0 PDS interrupted sutures all along the open portion. Great care was taken at the cephalad and caudad aspects of the incision to incorporate some of the previous suture line and prevent any further separation of the fascia at this point. Those areas appear to be healing nicely, and the underside of that fascial closure felt fine. Once all of the sutures were in place, great care was taken to ensure that nothing was entrapped underneath, and the fascia was gently brought back to me in the midline. Sutures were tied, and the fascia and subcutaneous tissues were then irrigated. The wound was hemostatic. The skin edge appeared healthy, and did not require any debridement. The skin edge was reapproximated with a skin stapler. A avery negative pressure wound dressing was then applied according to the manufactures instructions. Drapes were all removed, and the protected colostomy was unveiled, and redressed with a new colostomy device. Ha was awoken from anesthetic and transferred to the recovery unit.
[2024-05-19] MEDS: fentaNYL 100 MCG/2 ML VIAL IVP ×3 (17:43→18:02)
--- NOTE | 2024-05-19 17:47 | W.ANESPOSTOP ---
Postoperative Evaluation Date, Time and Location Date Performed: 05/19/24 Time Performed: 17:48 Patient Location: PACU Vital Signs Most Recent Imported Vital Signs: Most Recent Vital Signs Temp Pulse Resp BP Pulse Ox 36.7 C 88 21 111/79 94 05/19/24 17:35 05/19/24 17:35 05/19/24 17:36 05/19/24 17:35 05/19/24 11:08 Most Recent Vital Signs Temp Pulse Resp BP Pulse Ox 36.5 C 77 15 135/87 93 05/13/24 05:15 05/13/24 14:19 05/13/24 05:27 05/13/24 14:19 05/13/24 07:46 Pain Score Most Recent Pain Score: Most Recent Pain Score Pain Level [Mid Abdomen] 6 05/16/24 09:50 Pain Level 6 05/19/24 13:09 Assessment Mental Status: Awake (Alert & Oriented to Patient Baseline) Airway and Respiratory Function: Patent airway with normal (patient baseline) respiratory exam Cardiovascular Function: Hemodynamically Stable Hydration Status: Adequately Hydrated Nausea & Vomiting: No Nausea or Vomiting Pain: Pain is Moderate or Severe Postoperative Pain Management: Pain being addressed with medication Peripheral Nerve Block: Patient did not receive a nerve block
[2024-05-20] MEDS: Acetaminophen 500 MG TAB 1000 MG PO (05:06)
[2024-05-20 08:14] VITALS: BP 115/75; PULSE 83; RESP 15; TEMP 36.9; O2SAT 95
[2024-05-20] MEDS: Tiotropium Bromide-Respimat 10 PUFF INH 2 PUFF IH (08:32)
[2024-05-20] MEDS: Lisinopril 5 MG TAB PO (08:53)
--- NOTE | 2024-05-20 08:56 | W.PM.PROGNOT ---
Date of Service Date of service: 05/20/24 Time of Service: 08:56 Assessment and Plan Assessment and plan (1) Internal hernia: Status: Acute Assessment and plan: Odell seems to be doing great after revision of his laparotomy closure yesterday. At this point, I do not see any need to keep him in the hospital any longer. We took the opportunity of removing the bridge today to go over some stoma care, and he had a chance to see how to tailor, and see his colostomy appropriately. He seems comfortable attempting to manage this at home. We will plan to see him in the office in the midportion of next week for removal of the avery dressing, and hopefully some staple removal as well. Subjective Subjective Interval history since last seen: Times feeling much better this morning. He says he slept well last night, and has not really had any significant pain. He is tolerating a diet and has been voiding without any issues. Exam GI Other: His abdomen is soft, and not at all distended today. He has an appropriate amount of tenderness along the incision, but the avery dressing looks totally fine. I removed the bridge from the colostomy, and stoma remains pink, patent and healthy appearing. Objective Last Vital Signs Temp 98.4 F 05/20/24 08:14 Pulse 83 05/20/24 08:14 Resp 15 05/20/24 08:14 BP 115/75 05/20/24 08:14 Pulse Ox 95 05/20/24 08:14 Time Spent with Patient Time Spent with Patient: 35-49 minutes Time was spent: referring, communicating with other health medicare coordinator, indepentently interpreting results, counseling the patient and care coordination
--- NOTE | 2024-05-20 09:02 | PDOC.HHF2F_ITS ---
Home Health Referral Home Health Orders Clinical synopsis of why skilled professionals are needed: Ha is deconditioned after emergency surgery for a bowel obstruction that required creation of a colostomy. He requires home physical therapy, and has a new colostomy device, as well as a surgical dressing and wound that will need attention and care. 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 Registered Nurse: Check all that apply Instruct on ostomy care: Ordered (New colostomy appliance that requires care and evaluation) Assess for exacerbation of medical condition, instruct patient/caregivers on signs and symptoms to report for early detection: Ordered (Christopher negative pressure wound therapy device) Assess wound for signs and symptoms of infection, instruct on wound care and/or provide skilled wound care consisting of: New laparotomy incision that required revision and repeat closure because of dehiscence Physical Therapist: Check all that apply Increase strength & endurance for safe mobility at home: Ordered Fall reduction therapy program for patient with history of frequent falls: Ordered Home safety evaluation and teaching/gait training including stair management (if applicable): Ordered Precautions List Precautions: No lifting greater than 5 pounds Home Bound Status Assistance of another person (Describe assistance and medical necessity): Odell's is full-time employed, and has difficulty finding time off from work to assist with home care. He has ambulatory difficulty after abdominal surgery Describe why leaving home would require a considerable and taxing effort: Side effects from pain medication (sedation/drowsiness), Requires frequent rest periods and Safety Concerns: describe (Management of a new colostomy device) Encounter Date and Reason: I certify that a FTF encounter for this patient was performed on May 20, 2024 and that such encounter was related to the primary reason the patient requires home health services. The encounter was conducted in the following manner: * By me as the certifying physician, CHANGE CONTROL SPECIALIST, PA or * By an inpatient physician, CHANGE CONTROL SPECIALIST or PA during an inpatient stay who communicated findings to me, Certification And Authentication I certify that I composed the above information based on my clinical judgment relating to this patient's medical condition and, if applicable, clinical findings communicated to me by the NPP or inpatient physician who performed the FTF encounter. Name of Provider that will be monitoring home health services: Fernando Razo
--- NOTE | 2024-05-20 09:05 | PDOC.CMDIS ---
Date of service: 05/20/24 Time of Service: 09:05 LACE Index Scoring Tool Questions: Length of Stay (in days): 7 - 13 Was the patient admitted via the E.D.?: Yes Comorbidities: Chronic Pulmonary Disease E.D. Visits: 0 Answers: Total Score: 10 Risk of Readmission: High Risk Care Management Discharge Plan Reason for Hospitalization: SBO Discharge Plan: Ha will return home today with new orders for HH RN and PT. His ostomy supplies have been ordered through [employer] by surgical services. He will have a hospital follow up appointment on 05/26/24, and his HH orders will be followed by Phyllis Watkins at [facility]. He will follow his discharge plan of care. His is driving him home, and he is very happy to be going home. Patient/Family Education Needs: Review discharge instructions and limitations, discussion of self care needs including ask me three. Services Needed at Discharge: Home Health Care Services (new RN, PT) SDOH Health Related Social Needs: No Data to Display Care Management Referrals: PEDRO LUIS (Offered Referral)
--- NOTE | 2024-05-20 13:46 | PTTR_ITS ---
PT Notes Visit Reasons: SBO Inpatient Physical Therapy Treatment Note [facility] Date: 05/20/2024 PRECAUTIONS: Colostomy SUBJECTIVE: Patient reports I am going home today and I am happy OBJECTIVE: Smiling male supine in bed with slight elevation of head of bed colos leonela in place intermittent cough? PAIN: Denied VITALS: ?Monitored by nursing Therapeutic Activities ([id number]): Direct one-on-one instruction in dynamic activities to improve functional performance. ? BED MOBILITY/TRANSFERS? Rolling L/R: Logroll independent Supine-sit: Independent review of side-lying? Sit-supine: Independent via side-lying ? Sit-stand: Independent? Stand-sit: Independent ? Bed-Chair: Independent with FWW ? Chair-bed: Independent with FWW Provided skilled cues and instruction on performance and technique throughout. [] employing an assistive device [] modified weight-bearing status [] movement sequencing [] turning and movement with proper form [] Provided verbal cues for equipment management and technique [] Provided instruction in gait pattern [] Patient education regarding pacing and breathing techniques to maximize activity tolerance? GAIT? Assistive Device: []?FWW ? Weight bearing: Full Assist: SBA? Distance: 250 feet? Deviation: Reciprocal? STAIRS: 5 steps with 2 rails SBA step to pattern? ASSESSMENT: Patient demonstrates significant improvement in functional mobility and activity tolerance. Patient demonstrated logroll technique to reduce strain on abdominal incision during bed mobility. He also demonstrates carryover of braced coughing. Patient benefits from use of front wheel walker for trunk support during long distance ambulation PLAN:strengthening and functional mobility until discharge to home TREATMENT CODE/TIME: 32274/ 20 mins DISCHARGE RECOMMENDATION: Home with HH PT
== END 2024-05-20 14:15 | disposition home health service (06) | DRG 330 ==
LOC: ER 15:31 → MS 16:19 → ICU 05-12 18:31 → MS 05-15 16:25
PROVIDERS: Student in an Organized Health Care Education/Training Program; Surgery; Admitting Provider Surgery; Emergency Provider Nurse Practitioner Family; PCP Family Medicine; Visit Provider Surgery
PROC: 0D1N0Z4 Bypass Sigmoid Colon to Cutaneous, Open Approach (ICD-10-PCS; CPT 49000; principal; 2024-05-12 13:15)
PROC: 0JQ80ZZ Repair Abdomen Subcutaneous Tissue and Fascia, Open Approach (ICD-10-PCS; CPT 49900; principal; 2024-05-19 16:15)
DX: K56.52 Intestinal adhesions [bands] with complete obstruction (principal); K46.0 Unspecified abdominal hernia with obstruction, without gangrene; K57.32 Diverticulitis of large intestine without perforation or abscess without bleeding; K91.71 Accidental puncture and laceration of a digestive system organ or structure during a digestive system procedure; T81.32XA Disruption of internal operation (surgical) wound, not elsewhere classified, initial encounter; Z68.1 Body mass index [BMI] 19.9 or less, adult; R18.8 Other ascites; I70.0 Atherosclerosis of aorta; M47.816 Spondylosis without myelopathy or radiculopathy, lumbar region; Z87.891 Personal history of nicotine dependence; R63.4 Abnormal weight loss; I10 Essential (primary) hypertension; J44.9 Chronic obstructive pulmonary disease, unspecified; N40.0 Benign prostatic hyperplasia without lower urinary tract symptoms; Z79.899 Other long term (current) drug therapy; Z96.643 Presence of artificial hip joint, bilateral; R11.2 Nausea with vomiting, unspecified; Y65.8 Other specified misadventures during surgical and medical care; Y92.234 Operating room of hospital as the place of occurrence of the external cause; K91.30 Postprocedural intestinal obstruction, unspecified as to partial versus complete
CPT/HCPCS: 44320; 44050; 44602; 49900; 49002; 00123; 36415; 62326; 71045; 80048; 80053; 85027; 94640; 96361; 96374; 97162; 97530; 99222; 99231; 99232; 99285; 74018; 74019; 74177; 81003; 81015; 83735; 83880; 85025; 87070; 87075; 87205; 93306; 94664; 94667; 94668; 94760; C9290; J0131; J0665; J0690; J1100; J1644; J1805; J1885; J2001; J2250; J2270; J2371; J2405; J2543; J2704; J3010; J3475; J3490; Q9967

== ENCOUNTER → 2024-05-25 14:29 | Outpatient (BNVA) | payer MEDICARE, SELFPAY | PROVIDERS: PCP Family Medicine; Referring Provider Family Medicine; Visit Provider Surgery | DX: Z48.815 Encounter for surgical aftercare following surgery on the digestive system (principal) ==

== ENCOUNTER → 2024-06-01 13:35 | Outpatient (BNVA) | payer MEDICARE, SELFPAY | PROVIDERS: PCP Family Medicine; Visit Provider Surgery | DX: Z48.815 Encounter for surgical aftercare following surgery on the digestive system (principal) ==

== ENCOUNTER → 2024-08-03 13:13 | Outpatient (BNVA) | payer MEDICARE, SELFPAY | PROVIDERS: PCP Family Medicine; Referring Provider Family Medicine; Visit Provider Surgery | DX: K43.5 Parastomal hernia without obstruction or gangrene (principal) | CPT/HCPCS: 99214 ==

== ENCOUNTER → 2025-03-03 13:02 | Outpatient (BNVA) | payer MEDICARE, SELFPAY | PROVIDERS: PCP Family Medicine; Referring Provider Family Medicine; Visit Provider Surgery | DX: K43.5 Parastomal hernia without obstruction or gangrene (principal) | CPT/HCPCS: 99213 ==